=== PATIENT | male | born 1975 | race Caucasian/White ===

== ENCOUNTER 2020-01-14 23:02 | Inpatient (IN) ==
[2020-01-14] MEDS ORDERED: METOCLOPRAMIDE 10 MG/2 ML VIAL IV STA (23:31)
[2020-01-14] MEDS ORDERED: ONDANSETRON 4 MG/2 ML VIAL IV STA (23:31)
[2020-01-14] MEDS ORDERED: VANCOMYCIN INJ 1,000 MG in SODIUM CHLORIDE 0.9% 250 ML IV STA (23:31)
[2020-01-15 00:17] LABS: Basophils # 0.1 10*3/uL (0.0-0.2); Basophils % 0.9 % (0.0-0.8); Eosinophils # 0.4 10*3/uL (0.0-0.87); Eosinophils % 3.1 % (0.00-10.9); Hematocrit 33.4 VOL% (42.0-52.0); Hemoglobin 10.3 GM/DL (14.0-18.0); Immature Granulocytes % 1.3 %; Immature Granulocytes Absolute 0.15 #; Lymphocytes # 2.9 10*3/uL (1.4-4.0); Lymphocytes % 25.2 % (21.2-54.2); Mean Corpuscular HGB Conc 30.8 GM/DL (32-36); Mean Platelet Volume 9.4 FL (9.6-12.0); Monocytes % 7.1 % (1.7-12.7); Neutrophils % 62.4 % (38.7-73.9); Platelet Count 244 T/CUMM (130-400); Red Blood Count 3.48 MC/CUMM (3.8-5.5); Red Cell Distribution Width 13.6 % (9.3-17.3); White Blood Count 11.6 T/CUMM (4-12)
[2020-01-15 00:26] LABS: INR 0.9
[2020-01-15 00:52] LABS: Alanine Aminotransferase 21 U/L (16-61); Alkaline Phosphatase 103 U/L (45-117); Aspartate Amino Transferase 15 U/L (0-37); Bilirubin,Total < 0.39 MG/DL (0.2-1.0); Calcium 9.8 MG/DL (8.5-10.1); Total Protein 7.8 G/DL (6.4-8.3)
[2020-01-15 00:53] LABS: Albumin 3.3 G/DL (3.4-5.0); Blood Urea Nitrogen 13 MG/DL (7-18); CKMB % 5.7 %; Estimated Glom Filtration Rate 25 ML/MIN; Glucose 96 MG/DL (74-106); Osmolality,Calculated 267.2 MOS/KG (273-304)
[2020-01-15 00:54] LABS: Amylase 19 U/L (25-115); Troponin I < 0.015 NG/ML (0.00-0.045)
[2020-01-15] MEDS ORDERED: POTASSIUM BICARB EFFERVESCENT 25 MEQ TABLET PO ONE (01:08)
[2020-01-15 01:22] LABS: Sedimentation Rate-Westergren 111 MM/HR (0-15)
[2020-01-15] MEDS ORDERED: hydrALAZINE 20 MG/1 ML VIAL IV PRN (03:58)
[2020-01-15] MEDS ORDERED: DEXTROSE 50% 25 GM/50 ML VIAL IV PRN (03:58)
[2020-01-15] MEDS ORDERED: diphenhydrAMINE CAP 25 MG CAPSULE PO PRN ×2 (03:58→07:45)
[2020-01-15] MEDS ORDERED: ONDANSETRON 4 MG/2 ML VIAL IV PRN (03:58)
[2020-01-15] MEDS ORDERED: POTASSIUM CHLORIDE 20 MEQ TABLET PO PRN (03:58)
[2020-01-15] MEDS ORDERED: traZODone 50 MG TABLET PO PRN (03:58)
[2020-01-15] MEDS ORDERED: ACETAMINOPHEN 325 MG TABLET PO PRN (03:58)
[2020-01-15] MEDS ORDERED: GLUCAGON 1 MG VIAL IM PRN (03:58)
[2020-01-15] MEDS ORDERED: CALCIUM CARBONATE CHEW 500 MG TABLET PO PRN ×2 (03:58→06:14)
[2020-01-15] MEDS ORDERED: ALBUTEROL/IPRATROPIUM 3 ML NEB RESP TX PRN (03:58)
[2020-01-15] MEDS ORDERED: guaiFENesin/DM ER 600-30 MG TABLET PO PRN (03:58)
[2020-01-15] MEDS ORDERED: NICOTINE 21 MG/24 HR PATCH TRANSDERM PRN (03:58)
[2020-01-15] MEDS ORDERED: VANCOMYCIN INJ 1,000 MG in SODIUM CHLORIDE 0.9% 250 ML IV PRN ×2 (05:26→06:14)
[2020-01-15] MEDS: INSULIN REGULAR 100 UNIT/ML SUBCUT SCH ×4 (05:38→23:26)
[2020-01-15] MEDS ORDERED: VANCOMYCIN INJ 1,500 MG in SODIUM CHLORIDE 0.9% 500 ML IV ONE (06:00)
[2020-01-15 07:28] LABS: Apearance,Urine Slightly Hazy (Clear); Bilirubin,Urine Negative (Negative); Blood, Urine Moderate mg/dL (Negative); Glucose,Urine (UA) 50 mg/dL (Negative); Hyaline Casts,Urine 6 /LPF (0-3); Ketones,Urine Negative (Negative); Mucus,Urine Occasional /LPF (Occasional); Nitrite,Urine Negative (Negative); Protein,Urine 100 MG/DL; RBC,Urine 4 /HPF (0-4); Urine Color Amber (Yellow); Urine Specific Gravity 1.016 (1.001-1.035); Urine Urobilinogen < 2.0 EU/DL (0.2-1.0); WBC,Urine 16 /HPF (0-6)
[2020-01-15] MEDS ORDERED: CLINDAMYCIN INJ 600 MG in PREMIX 1 EACH IV SCH (07:30)
[2020-01-15] MEDS ORDERED: NF- (Ferric Citrate [Auryxia] 420 MG) PO PRN (07:45)
[2020-01-15] MEDS: carvediloL 6.25 MG TABLET PO SCH ×2 (08:38→17:46)
[2020-01-15] MEDS: ASPIRIN EC 81 MG TABLET PO SCH (08:44)
[2020-01-15] MEDS: LACTOBACILLUS ACIDOPHILUS/BULGARICUS CAPLET PO SCH (08:45)
[2020-01-15] MEDS: NF- (Ferric Citrate [Auryxia] 420 MG) PO SCH ×3 (08:45→17:47)
[2020-01-15] MEDS: CLINDAMYCIN INJ 300 MG in PREMIX 1 EACH IV SCH ×3 (09:25→20:17)
[2020-01-15] MEDS ORDERED: BUPIVACAINE MPF 0.25% 30 ML VIAL ONE (11:34)
[2020-01-15] MEDS ORDERED: LIDOCAINE 1% 20 ML VIAL ONE (11:34)
[2020-01-15 11:53] LABS: Albumin 2.9 G/DL (3.4-5.0); Bilirubin,Total 0.5 MG/DL (0.2-1.0); Calcium 9.1 MG/DL (8.5-10.1); Osmolality,Calculated 266.7 MOS/KG (273-304); Total Protein 7.1 G/DL (6.4-8.3)
[2020-01-15] MEDS ORDERED: SODIUM CHLORIDE 0.9% 250 ML IV SCH (12:00)
[2020-01-15] MEDS ORDERED: SODIUM CHLORIDE 0.9% 100 ML IV ONE (12:43)
[2020-01-15] MEDS ORDERED: fentaNYL 100 MCG/2 ML VIAL ONE (12:43)
[2020-01-15] MEDS ORDERED: MIDAZOLAM 2 MG/2 ML VIAL ONE (12:43)
[2020-01-15] MEDS ORDERED: propofoL 200 MG/20 ML VIAL IV ONE (12:43)
[2020-01-15] MEDS ORDERED: LIDOCAINE 2% 5 ML VIAL ONE (12:43)
[2020-01-15] MEDS: INSULIN GLARGINE 100 UNIT/ML SUBCUT SCH (20:17)
[2020-01-15] MEDS: AMITRIPTYLINE 10 MG TABLET PO SCH (20:17)
[2020-01-15] MEDS: MORPHINE 4 MG/1 ML VIAL IV PRN (23:26)
[2020-01-16] MEDS: CLINDAMYCIN INJ 300 MG in PREMIX 1 EACH IV SCH ×4 (01:18→20:19)
[2020-01-16] MEDS: MORPHINE 4 MG/1 ML VIAL IV PRN ×5 (02:57→23:53)
[2020-01-16] MEDS: INSULIN REGULAR 100 UNIT/ML SUBCUT SCH ×4 (06:02→23:56)
[2020-01-16] MEDS: ASPIRIN EC 81 MG TABLET PO SCH (08:46)
[2020-01-16] MEDS: LACTOBACILLUS ACIDOPHILUS/BULGARICUS CAPLET PO SCH (08:46)
[2020-01-16] MEDS: NF- (Ferric Citrate [Auryxia] 420 MG) PO SCH ×3 (08:46→17:43)
[2020-01-16] MEDS: carvediloL 6.25 MG TABLET PO SCH ×2 (08:46→17:30)
[2020-01-16] MEDS: HEPARIN 5,000 UNIT/1 ML VIAL SUBCUT SCH ×2 (14:30→23:56)
[2020-01-16] MEDS: AMITRIPTYLINE 10 MG TABLET PO SCH (20:13)
[2020-01-16] MEDS: INSULIN GLARGINE 100 UNIT/ML SUBCUT SCH (20:13)
[2020-01-17] MEDS: CLINDAMYCIN INJ 300 MG in PREMIX 1 EACH IV SCH ×2 (01:54→09:52)
[2020-01-17] MEDS: INSULIN REGULAR 100 UNIT/ML SUBCUT SCH (05:39)
[2020-01-17 08:26] VITALS: BP 128/47
[2020-01-17] MEDS: ASPIRIN EC 81 MG TABLET PO SCH (09:52)
[2020-01-17] MEDS: LACTOBACILLUS ACIDOPHILUS/BULGARICUS CAPLET PO SCH (09:52)
[2020-01-17] MEDS: NF- (Ferric Citrate [Auryxia] 420 MG) PO SCH (09:52)
[2020-01-17] MEDS: carvediloL 6.25 MG TABLET PO SCH (09:52)
[2020-01-17] MEDS: MORPHINE 4 MG/1 ML VIAL IV PRN (09:53)
== END 2020-01-17 12:33 | disposition home health service (06) | DRG 264 ==
LOC: N.ED 23:02 → N.EDINP 01-15 02:05 → N.3E 01-15 02:52
PROVIDERS: ADMIT Family Medicine; ATTEND Family Medicine

== ENCOUNTER 2020-03-26 06:06 | Inpatient (IN) ==
[2020-03-25 13:26] LABS: Basophils # 0.1 10*3/uL (0.0-0.2); Basophils % 0.3 % (0.0-0.8); Eosinophils # 0.1 10*3/uL (0.0-0.87); Eosinophils % 0.5 % (0.00-10.9); Hematocrit 31.2 VOL% (42.0-52.0); Hemoglobin 9.6 GM/DL (14.0-18.0); Immature Granulocytes % 1.6 %; Immature Granulocytes Absolute 0.28 #; Lymphocytes # 1.3 10*3/uL (1.4-4.0); Lymphocytes % 7.1 % (21.2-54.2); Mean Corpuscular HGB Conc 30.8 GM/DL (32-36); Mean Platelet Volume 8.9 FL (9.6-12.0); Monocytes % 3.6 % (1.7-12.7); Neutrophils % 86.9 % (38.7-73.9); Platelet Count 229 T/CUMM (130-400); Red Blood Count 3.25 MC/CUMM (3.8-5.5); Red Cell Distribution Width 14.5 % (9.3-17.3); White Blood Count 17.8 T/CUMM (4-12)
[2020-03-25 13:47] LABS: Calcium 8.9 MG/DL (8.5-10.1); Osmolality,Calculated 264.4 MOS/KG (273-304)
[2020-03-26 00:03] LABS: Albumin 2.5 G/DL (3.4-5.0); Bilirubin,Total 0.4 MG/DL (0.2-1.0); Calcium 9.1 MG/DL (8.5-10.1); Osmolality,Calculated 264.2 MOS/KG (273-304); Total Protein 7.8 G/DL (6.4-8.3)
[~2020-03-26 06:06] MED LIST: ceFAZolin 1,000 MG in SYRINGE 1 EACH IV ONE
[2020-03-26] MEDS ORDERED: FAMOTIDINE 20 MG TABLET PO ONE (06:54)
[2020-03-26] MEDS ORDERED: BUPIVACAINE MPF 0.25% 30 ML VIAL ONE (06:56)
[2020-03-26] MEDS ORDERED: LIDOCAINE 1% 20 ML VIAL ONE (06:56)
[2020-03-26] MEDS ORDERED: FAMOTIDINE 20 MG TABLET ONE (07:00)
[2020-03-26] MEDS ORDERED: VANCOMYCIN 1,000 MG VIAL ONE (07:00)
[2020-03-26] MEDS ORDERED: SODIUM CHLORIDE 0.9% 250 ML IV SCH (07:00)
[2020-03-26 08:04] LABS: Albumin 2.2 G/DL (3.4-5.0); Bilirubin,Total 0.4 MG/DL (0.2-1.0); Calcium 8.7 MG/DL (8.5-10.1); Osmolality,Calculated 268.4 MOS/KG (273-304); Total Protein 7.1 G/DL (6.4-8.3)
[2020-03-26] MEDS ORDERED: ACETAMINOPHEN 325 MG TABLET PO PRN (09:10)
[2020-03-26] MEDS ORDERED: DEXTROSE 10% 250 ML BAG IV PRN (09:10)
[2020-03-26] MEDS ORDERED: GLUCAGON 1 MG VIAL IM PRN (09:10)
[2020-03-26] MEDS ORDERED: diphenhydrAMINE CAP 25 MG CAPSULE PO PRN (10:20)
[2020-03-26] MEDS ORDERED: CALCIUM CARBONATE CHEW 500 MG TABLET PO PRN (10:20)
[2020-03-26] MEDS ORDERED: VANCOMYCIN INJ 1,000 MG in SODIUM CHLORIDE 0.9% 250 ML IV PRN (11:34)
[2020-03-26] MEDS ORDERED: VANCOMYCIN INJ 2,500 MG in SODIUM CHLORIDE 0.9% 500 ML IV ONE (12:00)
[2020-03-26] MEDS: INSULIN REGULAR 100 UNIT/ML SUBCUT SCH ×3 (12:15→21:59)
[2020-03-26] MEDS ORDERED: LIDOCAINE/PRILOCAINE CREAM 5 GM TUBE TOP ONE (14:30)
[2020-03-26] MEDS ORDERED: POTASSIUM CHLORIDE 10 MEQ TABLET PO PRN (18:31)
[2020-03-26] MEDS: carvediloL 6.25 MG TABLET PO SCH (21:58)
[2020-03-26] MEDS: DOCUSATE SODIUM 100 MG CAPSULE PO SCH (21:58)
[2020-03-26] MEDS: AMITRIPTYLINE 10 MG TABLET PO SCH (21:58)
[2020-03-27 06:14] LABS: Basophils % 0.3 % (0.0-0.8); Eosinophils # 0.1 10*3/uL (0.0-0.87); Eosinophils % 0.3 % (0.00-10.9); Hematocrit 27.7 VOL% (42.0-52.0); Hemoglobin 8.5 GM/DL (14.0-18.0); Immature Granulocytes % 1.5 %; Immature Granulocytes Absolute 0.22 #; Lymphocytes # 1.8 10*3/uL (1.4-4.0); Mean Corpuscular HGB Conc 30.7 GM/DL (32-36); Mean Corpuscular Volume 93.9 FL (87-102); Mean Platelet Volume 9.5 FL (9.6-12.0); Monocytes % 5.2 % (1.7-12.7); Neutrophils % 80.7 % (38.7-73.9); Platelet Count 217 T/CUMM (130-400); Red Blood Count 2.95 MC/CUMM (3.8-5.5); Red Cell Distribution Width 14.6 % (9.3-17.3); White Blood Count 14.9 T/CUMM (4-12)
[2020-03-27 06:47] LABS: Alanine Aminotransferase < 9 U/L (16-61); Albumin 2.1 G/DL (3.4-5.0); Alkaline Phosphatase 170 U/L (45-117); Aspartate Amino Transferase 7 U/L (0-37); Bilirubin,Total < 0.39 MG/DL (0.2-1.0); Blood Urea Nitrogen 36 MG/DL (7-18); Calcium 8.4 MG/DL (8.5-10.1); Estimated Glom Filtration Rate 13 ML/MIN; Glucose 161 MG/DL (74-106); Osmolality,Calculated 270.8 MOS/KG (273-304)
[2020-03-27] MEDS ORDERED: ceFAZolin 1,000 MG in SYRINGE 1 EACH IV ONE (07:30)
[2020-03-27] MEDS: INSULIN REGULAR 100 UNIT/ML SUBCUT SCH ×4 (09:29→22:26)
[2020-03-27] MEDS ORDERED: POTASSIUM CHLORIDE 20 MEQ TABLET PO ONE (10:29)
[2020-03-27] MEDS ORDERED: POTASSIUM CHLORIDE INJ 40 MEQ in SODIUM CHLORIDE 0.9% 500 ML IV ONE (11:00)
[2020-03-27] MEDS: carvediloL 6.25 MG TABLET PO SCH ×2 (15:48→22:24)
[2020-03-27] MEDS: metOLazone 5 MG TABLET PO SCH (18:00)
[2020-03-27] MEDS: PANTOPRAZOLE 40 MG TABLET PO SCH (18:00)
[2020-03-27] MEDS: ASPIRIN EC 81 MG TABLET PO SCH (18:00)
[2020-03-27] MEDS ORDERED: BUPIVACAINE MPF 0.25% 30 ML VIAL ONE (18:17)
[2020-03-27] MEDS ORDERED: LIDOCAINE 1% 20 ML VIAL ONE (18:17)
[2020-03-27] MEDS ORDERED: MIDAZOLAM 2 MG/2 ML VIAL ONE (20:31)
[2020-03-27] MEDS ORDERED: propofoL 200 MG/20 ML VIAL IV ONE (20:31)
[2020-03-27] MEDS ORDERED: fentaNYL 100 MCG/2 ML VIAL ONE (20:32)
[2020-03-27] MEDS: AMITRIPTYLINE 10 MG TABLET PO SCH (22:25)
[2020-03-27] MEDS: DOCUSATE SODIUM 100 MG CAPSULE PO SCH (22:25)
[2020-03-28] MEDS: INSULIN REGULAR 100 UNIT/ML SUBCUT SCH ×4 (09:48→21:21)
[2020-03-28] MEDS: metOLazone 5 MG TABLET PO SCH (09:49)
[2020-03-28] MEDS: PANTOPRAZOLE 40 MG TABLET PO SCH (09:49)
[2020-03-28] MEDS: carvediloL 6.25 MG TABLET PO SCH ×2 (09:49→21:15)
[2020-03-28] MEDS: ASPIRIN EC 81 MG TABLET PO SCH (09:49)
[2020-03-28 09:52] LABS: Basophils # 0.1 10*3/uL (0.0-0.2); Basophils % 0.4 % (0.0-0.8); Eosinophils # 0.3 10*3/uL (0.0-0.87); Eosinophils % 1.8 % (0.00-10.9); Hematocrit 28.5 VOL% (42.0-52.0); Hemoglobin 8.7 GM/DL (14.0-18.0); Immature Granulocytes % 2.7 %; Immature Granulocytes Absolute 0.38 #; Lymphocytes # 1.6 10*3/uL (1.4-4.0); Lymphocytes % 11.7 % (21.2-54.2); Mean Corpuscular HGB Conc 30.5 GM/DL (32-36); Mean Platelet Volume 9.1 FL (9.6-12.0); Neutrophils % 79.4 % (38.7-73.9); Platelet Count 227 T/CUMM (130-400); Red Blood Count 2.97 MC/CUMM (3.8-5.5); Red Cell Distribution Width 14.8 % (9.3-17.3); White Blood Count 13.9 T/CUMM (4-12)
[2020-03-28] MEDS: DOCUSATE SODIUM 100 MG CAPSULE PO SCH (21:14)
[2020-03-28] MEDS: AMITRIPTYLINE 10 MG TABLET PO SCH (21:15)
[2020-03-29 08:09] LABS: Basophils # 0.1 10*3/uL (0.0-0.2); Basophils % 0.5 % (0.0-0.8); Eosinophils # 0.3 10*3/uL (0.0-0.87); Eosinophils % 2.2 % (0.00-10.9); Hematocrit 27.5 VOL% (42.0-52.0); Hemoglobin 8.2 GM/DL (14.0-18.0); Immature Granulocytes Absolute 0.63 #; Lymphocytes # 1.9 10*3/uL (1.4-4.0); Lymphocytes % 14.7 % (21.2-54.2); Mean Corpuscular HGB Conc 29.8 GM/DL (32-36); Mean Corpuscular Volume 95.2 FL (87-102); Mean Platelet Volume 9.1 FL (9.6-12.0); Neutrophils % 72.6 % (38.7-73.9); Platelet Count 250 T/CUMM (130-400); Red Blood Count 2.89 MC/CUMM (3.8-5.5); Red Cell Distribution Width 14.7 % (9.3-17.3); White Blood Count 12.7 T/CUMM (4-12)
[2020-03-29] MEDS: ASPIRIN EC 81 MG TABLET PO SCH (08:25)
[2020-03-29] MEDS: INSULIN REGULAR 100 UNIT/ML SUBCUT SCH ×4 (08:25→21:52)
[2020-03-29] MEDS: PANTOPRAZOLE 40 MG TABLET PO SCH (08:26)
[2020-03-29 08:35] LABS: Anisocytosis 2+; Band Neutrophils 12 % (0-10); Eosinophils 3 % (0-10); Lymphocytes 12 % (20-55); Macrocytosis 2+; Metamyelocytes 1 %; Segmented Neutrophils 66 % (50-85); Total Cells Counted 100
[2020-03-29 08:39] LABS: Calcium 8.6 MG/DL (8.5-10.1); Osmolality,Calculated 279.9 MOS/KG (273-304)
[2020-03-29] MEDS ORDERED: CLINDAMYCIN INJ 900 MG in PREMIX 1 EACH IV ONE (10:40)
[2020-03-29 10:49] LABS: Hepatitis B Core IgM Quant 1.05 Index; Hepatitis B Surface Ag Quant < 0.10 Index; Hepatitis B Surface Ag Result Negative (Negative); Hepatitis C Virus Ab Quant < 0.02 Index; Hepatitis C Virus Ab Result Negative (Negative)
[2020-03-29] MEDS ORDERED: POTASSIUM CHLORIDE 20 MEQ TABLET PO ONE (12:44)
[2020-03-29] MEDS: HYDROmorphone 2 MG/1 ML VIAL IV PRN ×4 (13:04→21:02)
[2020-03-29] MEDS: carvediloL 6.25 MG TABLET PO SCH ×2 (13:05→21:51)
[2020-03-29] MEDS: metOLazone 5 MG TABLET PO SCH (13:05)
[2020-03-29] MEDS ORDERED: VANCOMYCIN INJ 1,000 MG in SODIUM CHLORIDE 0.9% 250 ML IV ONE (17:00)
[2020-03-29] MEDS ORDERED: SUGAMMADEX 200 MG/2 ML VIAL IV ONE (17:39)
[2020-03-29] MEDS ORDERED: SODIUM CHLORIDE 0.9% 250 ML IV ONE (18:07)
[2020-03-29] MEDS ORDERED: ROCURONIUM 100 MG/10 ML VIAL IV ONE (18:07)
[2020-03-29] MEDS ORDERED: ONDANSETRON 4 MG/2 ML VIAL ONE (18:07)
[2020-03-29] MEDS ORDERED: MIDAZOLAM 2 MG/2 ML VIAL ONE (18:07)
[2020-03-29] MEDS ORDERED: fentaNYL 100 MCG/2 ML VIAL ONE (18:07)
[2020-03-29] MEDS ORDERED: SEVOFLURANE 1 UNIT/15 MINUTE INH ONE (18:07)
[2020-03-29] MEDS ORDERED: propofoL 200 MG/20 ML VIAL IV ONE (18:07)
[2020-03-29] MEDS ORDERED: LIDOCAINE 2% 5 ML VIAL ONE (18:07)
[2020-03-29] MEDS ORDERED: ONDANSETRON 4 MG/2 ML VIAL IV PRN (18:13)
[2020-03-29] MEDS: metroNIDAZOLE INJ 500 MG in PREMIX 1 EACH IV SCH (19:39)
[2020-03-29] MEDS ORDERED: GENTAMICIN INJ 160 MG in SODIUM CHLORIDE 0.9% 100 ML IV PRN (21:14)
[2020-03-29] MEDS: AMITRIPTYLINE 10 MG TABLET PO SCH (21:51)
[2020-03-29] MEDS: DOCUSATE SODIUM 100 MG CAPSULE PO SCH (21:51)
[2020-03-29] MEDS ORDERED: GENTAMICIN INJ 160 MG in SODIUM CHLORIDE 0.9% 100 ML IV ONE (23:00)
[2020-03-30] MEDS: INSULIN REGULAR 100 UNIT/ML SUBCUT SCH ×4 (08:30→20:48)
[2020-03-30] MEDS: metOLazone 5 MG TABLET PO SCH (09:28)
[2020-03-30] MEDS: carvediloL 6.25 MG TABLET PO SCH ×2 (09:29→20:46)
[2020-03-30] MEDS: ASPIRIN EC 81 MG TABLET PO SCH (09:29)
[2020-03-30] MEDS: PANTOPRAZOLE 40 MG TABLET PO SCH (09:29)
[2020-03-30] MEDS ORDERED: POTASSIUM CHLORIDE 20 MEQ TABLET PO SCH (11:00)
[2020-03-30] MEDS: HYDROmorphone 2 MG/1 ML VIAL IV PRN ×3 (11:27→21:19)
[2020-03-30] MEDS: metroNIDAZOLE INJ 500 MG in PREMIX 1 EACH IV SCH ×3 (11:27→22:47)
[2020-03-30] MEDS: POTASSIUM CHLORIDE 20 MEQ TABLET PO SCH ×2 (11:28→18:55)
[2020-03-30] MEDS ORDERED: NON-FORMULARY MEDICATION (Ferric Citrate [Auryxia] 420 MG) PO SCH (17:00)
[2020-03-30] MEDS: AMITRIPTYLINE 10 MG TABLET PO SCH (20:47)
[2020-03-30] MEDS: DOCUSATE SODIUM 100 MG CAPSULE PO SCH (20:47)
[2020-03-30] MEDS: INSULIN GLARGINE 100 UNIT/ML SUBCUT SCH (20:56)
[2020-03-31] MEDS: HYDROmorphone 2 MG/1 ML VIAL IV PRN ×5 (03:42→20:56)
[2020-03-31] MEDS: INSULIN REGULAR 100 UNIT/ML SUBCUT SCH ×4 (08:34→20:57)
[2020-03-31] MEDS: metOLazone 5 MG TABLET PO SCH (09:10)
[2020-03-31] MEDS: PANTOPRAZOLE 40 MG TABLET PO SCH (09:10)
[2020-03-31] MEDS: ASPIRIN EC 81 MG TABLET PO SCH (09:10)
[2020-03-31] MEDS: carvediloL 6.25 MG TABLET PO SCH ×2 (09:10→20:55)
[2020-03-31] MEDS ORDERED: GENTAMICIN INJ 200 MG in SODIUM CHLORIDE 0.9% 100 ML IV PRN (09:30)
[2020-03-31] MEDS: metroNIDAZOLE INJ 500 MG in PREMIX 1 EACH IV SCH (11:47)
[2020-03-31] MEDS: SODIUM HYPOCHLORITE 0.25% IRRIG 473 ML BOTTLE TOP SCH (13:05)
[2020-03-31] MEDS ORDERED: VANCOMYCIN INJ 1,000 MG in SODIUM CHLORIDE 0.9% 250 ML IV ONE (17:00)
[2020-03-31] MEDS ORDERED: GENTAMICIN INJ 200 MG in SODIUM CHLORIDE 0.9% 100 ML IV ONE (18:00)
[2020-03-31] MEDS: DOCUSATE SODIUM 100 MG CAPSULE PO SCH (20:55)
[2020-03-31] MEDS: AMITRIPTYLINE 10 MG TABLET PO SCH (20:56)
[2020-03-31] MEDS: INSULIN GLARGINE 100 UNIT/ML SUBCUT SCH (20:57)
[2020-04-01] MEDS: metroNIDAZOLE INJ 500 MG in PREMIX 1 EACH IV SCH ×2 (00:05→11:55)
[2020-04-01] MEDS: HYDROmorphone 2 MG/1 ML VIAL IV PRN ×6 (01:19→20:59)
[2020-04-01 06:47] LABS: Basophils # 0.1 10*3/uL (0.0-0.2); Basophils % 0.7 % (0.0-0.8); Eosinophils # 0.6 10*3/uL (0.0-0.87); Eosinophils % 4.7 % (0.00-10.9); Hematocrit 29.2 VOL% (42.0-52.0); Hemoglobin 8.7 GM/DL (14.0-18.0); Immature Granulocytes % 9.2 %; Immature Granulocytes Absolute 1.19 #; Lymphocytes # 2.4 10*3/uL (1.4-4.0); Lymphocytes % 18.7 % (21.2-54.2); Mean Corpuscular HGB Conc 29.8 GM/DL (32-36); Mean Corpuscular Volume 94.5 FL (87-102); Mean Platelet Volume 9.2 FL (9.6-12.0); Monocytes % 4.5 % (1.7-12.7); Neutrophils % 62.2 % (38.7-73.9); Platelet Count 286 T/CUMM (130-400); Red Blood Count 3.09 MC/CUMM (3.8-5.5); Red Cell Distribution Width 14.7 % (9.3-17.3); White Blood Count 12.9 T/CUMM (4-12)
[2020-04-01 07:18] LABS: Band Neutrophils 1 % (0-10); Eosinophils 9 % (0-10); Hypochromasia 1+; Lymphocytes 18 % (20-55); Metamyelocytes 1 %; Microcytosis Slight; Myelocytes 1 %; Segmented Neutrophils 65 % (50-85); Total Cells Counted 100
[2020-04-01 07:19] LABS: Alanine Aminotransferase < 6 U/L (16-61); Alkaline Phosphatase 138 U/L (45-117); Aspartate Amino Transferase 12 U/L (0-37); Blood Urea Nitrogen 34 MG/DL (7-18); Calcium 8.4 MG/DL (8.5-10.1); Estimated Glom Filtration Rate 16 ML/MIN; Glucose 202 MG/DL (74-106); Osmolality,Calculated 275.7 MOS/KG (273-304); Platelet Estimate Normal; Tear Drop Cells Slight; Total Protein 6.7 G/DL (6.4-8.3)
[2020-04-01] MEDS: SODIUM HYPOCHLORITE 0.25% IRRIG 473 ML BOTTLE TOP SCH (08:00)
[2020-04-01] MEDS: carvediloL 6.25 MG TABLET PO SCH ×2 (09:23→20:57)
[2020-04-01] MEDS: INSULIN REGULAR 100 UNIT/ML SUBCUT SCH ×4 (09:23→20:58)
[2020-04-01] MEDS: ASPIRIN EC 81 MG TABLET PO SCH (09:23)
[2020-04-01] MEDS: metOLazone 5 MG TABLET PO SCH (09:23)
[2020-04-01] MEDS: PANTOPRAZOLE 40 MG TABLET PO SCH (09:24)
[2020-04-01] MEDS: ONDANSETRON 4 MG/2 ML VIAL IV PRN (18:01)
[2020-04-01] MEDS: AMITRIPTYLINE 10 MG TABLET PO SCH (20:57)
[2020-04-01] MEDS: DOCUSATE SODIUM 100 MG CAPSULE PO SCH (20:57)
[2020-04-01] MEDS: INSULIN GLARGINE 100 UNIT/ML SUBCUT SCH (20:58)
[2020-04-02] MEDS: HYDROmorphone 2 MG/1 ML VIAL IV PRN ×7 (00:10→23:38)
[2020-04-02] MEDS: metroNIDAZOLE INJ 500 MG in PREMIX 1 EACH IV SCH ×3 (00:10→23:38)
[2020-04-02 08:01] LABS: Basophils # 0.1 10*3/uL (0.0-0.2); Basophils % 0.7 % (0.0-0.8); Eosinophils # 0.6 10*3/uL (0.0-0.87); Eosinophils % 4.7 % (0.00-10.9); Hematocrit 29.9 VOL% (42.0-52.0); Hemoglobin 8.9 GM/DL (14.0-18.0); Immature Granulocytes % 10.8 %; Immature Granulocytes Absolute 1.32 #; Lymphocytes # 2.2 10*3/uL (1.4-4.0); Mean Corpuscular HGB Conc 29.8 GM/DL (32-36); Mean Corpuscular Volume 96.1 FL (87-102); Monocytes % 4.7 % (1.7-12.7); Neutrophils % 61.1 % (38.7-73.9); Platelet Count 282 T/CUMM (130-400); Red Blood Count 3.11 MC/CUMM (3.8-5.5); Red Cell Distribution Width 14.6 % (9.3-17.3); White Blood Count 12.3 T/CUMM (4-12)
[2020-04-02 08:29] LABS: Band Neutrophils 1 % (0-10); Eosinophils 3 % (0-10); Hypochromasia 2+; Lymphocytes 17 % (20-55); Metamyelocytes 2 %; Platelet Estimate Normal; Segmented Neutrophils 74 % (50-85); Total Cells Counted 100
[2020-04-02 08:49] LABS: Calcium 8.4 MG/DL (8.5-10.1); Osmolality,Calculated 278.7 MOS/KG (273-304)
[2020-04-02] MEDS: INSULIN REGULAR 100 UNIT/ML SUBCUT SCH ×4 (09:00→20:49)
[2020-04-02] MEDS: carvediloL 6.25 MG TABLET PO SCH ×2 (09:02→20:49)
[2020-04-02] MEDS: metOLazone 5 MG TABLET PO SCH (09:02)
[2020-04-02] MEDS: ASPIRIN EC 81 MG TABLET PO SCH (09:02)
[2020-04-02] MEDS: PANTOPRAZOLE 40 MG TABLET PO SCH (09:02)
[2020-04-02] MEDS: SODIUM HYPOCHLORITE 0.25% IRRIG 473 ML BOTTLE TOP SCH (09:09)
[2020-04-02] MEDS: ONDANSETRON 4 MG/2 ML VIAL IV PRN (14:55)
[2020-04-02] MEDS ORDERED: VANCOMYCIN INJ 1,000 MG in SODIUM CHLORIDE 0.9% 250 ML IV ONE (17:00)
[2020-04-02] MEDS ORDERED: GENTAMICIN INJ 200 MG in SODIUM CHLORIDE 0.9% 100 ML IV ONE (18:00)
[2020-04-02] MEDS: DOCUSATE SODIUM 100 MG CAPSULE PO SCH (20:49)
[2020-04-02] MEDS: AMITRIPTYLINE 10 MG TABLET PO SCH (20:49)
[2020-04-02] MEDS: INSULIN GLARGINE 100 UNIT/ML SUBCUT SCH (20:50)
[2020-04-03] MEDS: HYDROmorphone 2 MG/1 ML VIAL IV PRN ×6 (02:58→19:05)
[2020-04-03] MEDS: ONDANSETRON 4 MG/2 ML VIAL IV PRN (08:42)
[2020-04-03] MEDS: metOLazone 5 MG TABLET PO SCH (09:21)
[2020-04-03] MEDS: carvediloL 6.25 MG TABLET PO SCH ×2 (09:21→20:49)
[2020-04-03] MEDS: INSULIN REGULAR 100 UNIT/ML SUBCUT SCH ×4 (09:21→20:50)
[2020-04-03] MEDS: ASPIRIN EC 81 MG TABLET PO SCH (09:21)
[2020-04-03] MEDS: PANTOPRAZOLE 40 MG TABLET PO SCH (09:22)
[2020-04-03] MEDS: SODIUM HYPOCHLORITE 0.25% IRRIG 473 ML BOTTLE TOP SCH (09:22)
[2020-04-03] MEDS: metroNIDAZOLE INJ 500 MG in PREMIX 1 EACH IV SCH (11:39)
[2020-04-03] MEDS: DOCUSATE SODIUM 100 MG CAPSULE PO SCH (20:49)
[2020-04-03] MEDS: AMITRIPTYLINE 10 MG TABLET PO SCH (20:49)
[2020-04-03] MEDS: INSULIN GLARGINE 100 UNIT/ML SUBCUT SCH (20:49)
[2020-04-04] MEDS: HYDROmorphone 2 MG/1 ML VIAL IV PRN ×7 (01:22→23:38)
[2020-04-04] MEDS: metroNIDAZOLE INJ 500 MG in PREMIX 1 EACH IV SCH ×3 (01:27→20:27)
[2020-04-04] MEDS: carvediloL 6.25 MG TABLET PO SCH ×2 (08:45→20:42)
[2020-04-04] MEDS: PANTOPRAZOLE 40 MG TABLET PO SCH (08:45)
[2020-04-04] MEDS: metOLazone 5 MG TABLET PO SCH (08:45)
[2020-04-04] MEDS: ASPIRIN EC 81 MG TABLET PO SCH (08:45)
[2020-04-04] MEDS: SODIUM HYPOCHLORITE 0.25% IRRIG 473 ML BOTTLE TOP SCH (08:47)
[2020-04-04] MEDS: INSULIN REGULAR 100 UNIT/ML SUBCUT SCH ×4 (09:59→20:43)
[2020-04-04] MEDS: AMITRIPTYLINE 10 MG TABLET PO SCH (20:42)
[2020-04-04] MEDS: INSULIN GLARGINE 100 UNIT/ML SUBCUT SCH ×2 (20:43→20:49)
[2020-04-04] MEDS: DOCUSATE SODIUM 100 MG CAPSULE PO SCH (20:43)
[2020-04-05] MEDS: HYDROmorphone 2 MG/1 ML VIAL IV PRN ×8 (03:58→21:11)
[2020-04-05 05:54] LABS: Basophils # 0.1 10*3/uL (0.0-0.2); Eosinophils # 0.6 10*3/uL (0.0-0.87); Hematocrit 28.3 VOL% (42.0-52.0); Hemoglobin 8.5 GM/DL (14.0-18.0); Immature Granulocytes % 4.9 %; Immature Granulocytes Absolute 0.45 #; Lymphocytes # 2.2 10*3/uL (1.4-4.0); Lymphocytes % 23.9 % (21.2-54.2); Mean Platelet Volume 9.1 FL (9.6-12.0); Monocytes % 6.1 % (1.7-12.7); Neutrophils % 58.1 % (38.7-73.9); Platelet Count 288 T/CUMM (130-400); Red Blood Count 3.01 MC/CUMM (3.8-5.5); Red Cell Distribution Width 14.3 % (9.3-17.3); White Blood Count 9.2 T/CUMM (4-12)
[2020-04-05 06:11] LABS: Gentamicin,Random 1.4 UG/ML; Vancomycin,Random 21.3 UG/ML
[2020-04-05 06:16] LABS: Calcium 8.5 MG/DL (8.5-10.1); Osmolality,Calculated 280.4 MOS/KG (273-304)
[2020-04-05] MEDS ORDERED: SUGAMMADEX 200 MG/2 ML VIAL IV ONE (07:34)
[2020-04-05] MEDS ORDERED: SODIUM CHLORIDE 0.9% 250 ML IV SCH (08:00)
[2020-04-05] MEDS: INSULIN REGULAR 100 UNIT/ML SUBCUT SCH ×4 (08:03→21:13)
[2020-04-05] MEDS: SODIUM HYPOCHLORITE 0.25% IRRIG 473 ML BOTTLE TOP SCH (09:00)
[2020-04-05] MEDS ORDERED: ONDANSETRON 4 MG/2 ML VIAL IV PRN (09:48)
[2020-04-05] MEDS ORDERED: LIDOCAINE 2% 5 ML VIAL ONE (09:55)
[2020-04-05] MEDS ORDERED: SEVOFLURANE 1 UNIT/15 MINUTE INH ONE (09:55)
[2020-04-05] MEDS ORDERED: propofoL 200 MG/20 ML VIAL IV ONE (09:55)
[2020-04-05] MEDS ORDERED: MIDAZOLAM 2 MG/2 ML VIAL ONE (09:55)
[2020-04-05] MEDS ORDERED: NEOSTIGMINE 10 MG/10 ML VIAL ONE (09:56)
[2020-04-05] MEDS ORDERED: GLYCOPYRROLATE 0.4 MG/2 ML VIAL ONE (09:56)
[2020-04-05] MEDS ORDERED: ROCURONIUM 100 MG/10 ML VIAL IV ONE (09:56)
[2020-04-05] MEDS ORDERED: fentaNYL 100 MCG/2 ML VIAL ONE ×2 (09:56→09:57)
[2020-04-05] MEDS ORDERED: PHENYLEPHRINE 1 MG/10 ML SYRINGE IV ONE (09:56)
[2020-04-05] MEDS ORDERED: SODIUM CHLORIDE 0.9% 250 ML IV ONE (09:56)
[2020-04-05] MEDS ORDERED: ONDANSETRON 4 MG/2 ML VIAL ONE (09:56)
[2020-04-05] MEDS: metOLazone 5 MG TABLET PO SCH (11:02)
[2020-04-05] MEDS: metroNIDAZOLE INJ 500 MG in PREMIX 1 EACH IV SCH ×2 (11:03→21:15)
[2020-04-05] MEDS: ASPIRIN EC 81 MG TABLET PO SCH (11:03)
[2020-04-05] MEDS: carvediloL 6.25 MG TABLET PO SCH ×2 (11:03→21:15)
[2020-04-05] MEDS: PANTOPRAZOLE 40 MG TABLET PO SCH (11:03)
[2020-04-05] MEDS ORDERED: KETOROLAC 30 MG/1 ML VIAL IV ONE (15:07)
[2020-04-05] MEDS ORDERED: KETOROLAC 15 MG/1 ML VIAL IV PRN (15:07)
[2020-04-05] MEDS ORDERED: HYDROmorphone 2 MG/1 ML VIAL IV ONE (15:10)
[2020-04-05] MEDS: GABAPENTIN 100 MG CAPSULE PO SCH ×2 (15:56→21:15)
[2020-04-05] MEDS ORDERED: GENTAMICIN INJ 200 MG in SODIUM CHLORIDE 0.9% 100 ML IV ONE (17:00)
[2020-04-05] MEDS ORDERED: VANCOMYCIN INJ 1,000 MG in SODIUM CHLORIDE 0.9% 250 ML IV ONE (17:30)
[2020-04-05] MEDS: INSULIN GLARGINE 100 UNIT/ML SUBCUT SCH (21:14)
[2020-04-05] MEDS: DOCUSATE SODIUM 100 MG CAPSULE PO SCH (21:15)
[2020-04-05] MEDS: AMITRIPTYLINE 10 MG TABLET PO SCH (21:15)
[2020-04-06 07:06] LABS: Basophils # 0.1 10*3/uL (0.0-0.2); Basophils % 0.9 % (0.0-0.8); Eosinophils # 0.4 10*3/uL (0.0-0.87); Eosinophils % 4.5 % (0.00-10.9); Hematocrit 24.2 VOL% (42.0-52.0); Hemoglobin 7.1 GM/DL (14.0-18.0); Immature Granulocytes Absolute 0.32 #; Lymphocytes # 2.1 10*3/uL (1.4-4.0); Lymphocytes % 25.7 % (21.2-54.2); Mean Corpuscular HGB Conc 29.3 GM/DL (32-36); Mean Corpuscular Volume 97.6 FL (87-102); Mean Platelet Volume 9.4 FL (9.6-12.0); Monocytes % 6.5 % (1.7-12.7); Neutrophils % 58.4 % (38.7-73.9); Platelet Count 274 T/CUMM (130-400); Red Blood Count 2.48 MC/CUMM (3.8-5.5); Red Cell Distribution Width 14.5 % (9.3-17.3)
[2020-04-06 07:23] LABS: Calcium 7.7 MG/DL (8.5-10.1); Osmolality,Calculated 283.1 MOS/KG (273-304)
[2020-04-06] MEDS ORDERED: EPOETIN ALFA-EPBX 10,000 UNIT/ML VIAL IV PRN (08:40)
[2020-04-06] MEDS: HYDROmorphone 2 MG/1 ML VIAL IV PRN ×5 (08:43→22:41)
[2020-04-06] MEDS: carvediloL 6.25 MG TABLET PO SCH ×2 (08:44→20:58)
[2020-04-06] MEDS: PANTOPRAZOLE 40 MG TABLET PO SCH (08:44)
[2020-04-06] MEDS: GABAPENTIN 100 MG CAPSULE PO SCH ×3 (08:44→20:58)
[2020-04-06] MEDS: metOLazone 5 MG TABLET PO SCH (08:44)
[2020-04-06] MEDS: INSULIN REGULAR 100 UNIT/ML SUBCUT SCH ×4 (08:44→20:57)
[2020-04-06] MEDS: SODIUM HYPOCHLORITE 0.25% IRRIG 473 ML BOTTLE TOP SCH (08:45)
[2020-04-06] MEDS: ASPIRIN EC 81 MG TABLET PO SCH (08:45)
[2020-04-06] MEDS: INSULIN GLARGINE 100 UNIT/ML SUBCUT SCH (20:56)
[2020-04-06] MEDS: AMITRIPTYLINE 10 MG TABLET PO SCH (20:58)
[2020-04-06] MEDS: DOCUSATE SODIUM 100 MG CAPSULE PO SCH (21:02)
[2020-04-07] MEDS: HYDROmorphone 2 MG/1 ML VIAL IV PRN ×5 (00:50→10:13)
[2020-04-07] MEDS: ONDANSETRON 4 MG/2 ML VIAL IV PRN (07:46)
[2020-04-07 09:08] VITALS: BP 115/53
[2020-04-07] MEDS: INSULIN REGULAR 100 UNIT/ML SUBCUT SCH ×2 (09:28→12:29)
[2020-04-07] MEDS: metOLazone 5 MG TABLET PO SCH (09:29)
[2020-04-07] MEDS: ASPIRIN EC 81 MG TABLET PO SCH (09:30)
[2020-04-07] MEDS: SODIUM HYPOCHLORITE 0.25% IRRIG 473 ML BOTTLE TOP SCH (09:30)
[2020-04-07] MEDS: carvediloL 6.25 MG TABLET PO SCH (09:30)
[2020-04-07] MEDS: PANTOPRAZOLE 40 MG TABLET PO SCH (09:30)
[2020-04-07] MEDS: GABAPENTIN 100 MG CAPSULE PO SCH (09:30)
== END 2020-04-07 12:30 | disposition home health service (06) | DRG 239 ==
LOC: N.SDSINP 06:06 → N.OR 06:06 → N.SDSINP 06:08 → N.3E 10:35
PROVIDERS: ADMIT Student in an Organized Health Care Education/Training Program; ATTEND Surgery

== ENCOUNTER 2020-04-19 11:45 | Inpatient (IN) ==
[2020-04-19] MEDS ORDERED: NALOXONE 0.4 MG/ML VIAL IV STA (12:09)
[2020-04-19 12:16] LABS: Basophils # 0.1 10*3/uL (0.0-0.2); Basophils % 0.6 % (0.0-0.8); Eosinophils # 0.2 10*3/uL (0.0-0.87); Eosinophils % 1.7 % (0.00-10.9); Hematocrit 23.6 VOL% (42.0-52.0); Hemoglobin 6.9 GM/DL (14.0-18.0); Immature Granulocytes % 4.1 %; Immature Granulocytes Absolute 0.39 #; Lymphocytes # 1.9 10*3/uL (1.4-4.0); Lymphocytes % 19.8 % (21.2-54.2); Mean Corpuscular HGB Conc 29.2 GM/DL (32-36); Mean Corpuscular Volume 97.1 FL (87-102); Mean Platelet Volume 8.7 FL (9.6-12.0); Monocytes % 5.8 % (1.7-12.7); NRBC # 0.03 10*3/uL; Platelet Count 214 T/CUMM (130-400); Red Blood Count 2.43 MC/CUMM (3.8-5.5); White Blood Count 9.5 T/CUMM (4-12)
[2020-04-19 12:29] LABS: Alanine Aminotransferase 10 U/L (16-61); Albumin 2.7 G/DL (3.4-5.0); Alkaline Phosphatase 111 U/L (45-117); Aspartate Amino Transferase 14 U/L (0-37); Bilirubin,Total < 0.39 MG/DL (0.2-1.0); Blood Urea Nitrogen 55 MG/DL (7-18); Glucose 196 MG/DL (74-106); Osmolality,Calculated 287.2 MOS/KG (273-304); Total Protein 7.7 G/DL (6.4-8.3)
[2020-04-19 12:30] LABS: Estimated Glom Filtration Rate 0 ML/MIN
[2020-04-19] MEDS ORDERED: CLINDAMYCIN INJ 600 MG in PREMIX 1 EACH IV STA (13:39)
[2020-04-19 13:43] LABS: Apearance,Urine Slightly Hazy (Clear); Bacteria,Urine Occasional /HPF (Few); Bilirubin,Urine Negative (Negative); Blood, Urine Moderate mg/dL (Negative); Glucose,Urine (UA) 50 mg/dL (Negative); Hyaline Casts,Urine 1 /LPF (0-3); Ketones,Urine Negative (Negative); Mucus,Urine Occasional /LPF (Occasional); Nitrite,Urine Negative (Negative); Protein,Urine 100 MG/DL; RBC,Urine 8 /HPF (0-4); Urine Color Yellow (Yellow); Urine Specific Gravity 1.011 (1.001-1.035); Urine Urobilinogen < 2.0 EU/DL (0.2-1.0); WBC,Urine 6 /HPF (0-6)
[2020-04-19 14:00] LABS: Barbiturates Screen,Urine Negative (Negative); Benzodiazepines Screen,Urine Negative (Negative); Cannabinoid Screen,Urine Negative (Negative); Opiate Screen,Urine Positive (Negative); Phencyclidine Screen,Urine Negative (Negative)
[2020-04-19] MEDS ORDERED: LORazepam 2 MG/1 ML VIAL ONE (14:27)
[2020-04-19] MEDS ORDERED: LORazepam 2 MG/1 ML VIAL IV STA (14:30)
[2020-04-19] MEDS ORDERED: LABETALOL 20 MG/4 ML SYRINGE IV ONE (14:46)
[2020-04-19] MEDS ORDERED: LABETALOL 20 MG/4 ML SYRINGE IV STA (14:46)
[2020-04-19] MEDS ORDERED: ONDANSETRON 4 MG/2 ML VIAL IV PRN (17:49)
[2020-04-19] MEDS: ENALAPRIL 2.5 MG/2 ML VIAL IV SCH (18:15)
[2020-04-19] MEDS ORDERED: cloNIDine 0.3 MG/24 HR PATCH TRANSDERM SCH (18:30)
[2020-04-19] MEDS ORDERED: VANCOMYCIN INJ 1,500 MG in SODIUM CHLORIDE 0.9% 500 ML IV ONE (18:30)
[2020-04-20] MEDS: ENOXAPARIN 30 MG/0.3 ML SYRINGE SUBCUT SCH ×2 (00:57→21:23)
[2020-04-20] MEDS: CLINDAMYCIN INJ 600 MG in PREMIX 1 EACH IV SCH ×5 (00:57→20:17)
[2020-04-20] MEDS: ENALAPRIL 2.5 MG/2 ML VIAL IV SCH ×4 (04:17→18:11)
[2020-04-20 06:46] LABS: Basophils # 0.1 10*3/uL (0.0-0.2); Basophils % 0.6 % (0.0-0.8); Eosinophils # 0.4 10*3/uL (0.0-0.87); Eosinophils % 4.5 % (0.00-10.9); Hematocrit 18.9 VOL% (42.0-52.0); Immature Granulocytes Absolute 0.16 #; Lymphocytes # 1.6 10*3/uL (1.4-4.0); Lymphocytes % 19.5 % (21.2-54.2); Mean Corpuscular HGB Conc 29.1 GM/DL (32-36); Mean Corpuscular Volume 97.4 FL (87-102); Mean Platelet Volume 9.1 FL (9.6-12.0); Monocytes % 6.4 % (1.7-12.7); Platelet Count 164 T/CUMM (130-400); Red Blood Count 1.94 MC/CUMM (3.8-5.5); Red Cell Distribution Width 15.2 % (9.3-17.3)
[2020-04-20] MEDS ORDERED: SODIUM CHLORIDE 0.9% 1,000 ML IV PRN (06:57)
[2020-04-20] MEDS ORDERED: CLINDAMYCIN INJ 900 MG in PREMIX 1 EACH IV ONE (07:00)
[2020-04-20 07:03] LABS: Hemoglobin 5.5 GM/DL (14.0-18.0)
[2020-04-20 07:06] LABS: Alanine Aminotransferase < 9 U/L (16-61); Albumin 2.2 G/DL (3.4-5.0); Alkaline Phosphatase 83 U/L (45-117); Aspartate Amino Transferase 9 U/L (0-37); Blood Urea Nitrogen 57 MG/DL (7-18); Calcium 8.8 MG/DL (8.5-10.1); Estimated Glom Filtration Rate 11 ML/MIN; Glucose 151 MG/DL (74-106); Osmolality,Calculated 288.1 MOS/KG (273-304); Total Protein 6.3 G/DL (6.4-8.3)
[2020-04-20 07:07] LABS: Troponin I 0.975 NG/ML (0.00-0.045)
[2020-04-20 07:13] LABS: Hypochromasia 2+; Microcytosis 1+; Platelet Estimate Adequate
[2020-04-20] MEDS: PANTOPRAZOLE 40 MG TABLET PO SCH (08:17)
[2020-04-20] MEDS ORDERED: SUGAMMADEX 200 MG/2 ML VIAL IV ONE (08:51)
[2020-04-20] MEDS ORDERED: LIDOCAINE 2% 5 ML VIAL ONE (09:05)
[2020-04-20] MEDS ORDERED: propofoL 200 MG/20 ML VIAL IV ONE (09:05)
[2020-04-20] MEDS ORDERED: fentaNYL 100 MCG/2 ML VIAL ONE (09:06)
[2020-04-20] MEDS ORDERED: ONDANSETRON 4 MG/2 ML VIAL ONE (09:06)
[2020-04-20] MEDS ORDERED: DESFLURANE 1 UNIT/15 MINUTE INH ONE (09:06)
[2020-04-20] MEDS ORDERED: ROCURONIUM 100 MG/10 ML VIAL IV ONE (09:06)
[2020-04-20 09:41] LABS: Alanine Aminotransferase < 9 U/L (16-61); Albumin 2.2 G/DL (3.4-5.0); Alkaline Phosphatase 86 U/L (45-117); Aspartate Amino Transferase 9 U/L (0-37); Bilirubin,Total < 0.39 MG/DL (0.2-1.0); Blood Urea Nitrogen 57 MG/DL (7-18); Calcium 8.9 MG/DL (8.5-10.1); Estimated Glom Filtration Rate 11 ML/MIN; Glucose 151 MG/DL (74-106); Osmolality,Calculated 288.1 MOS/KG (273-304); Total Protein 6.6 G/DL (6.4-8.3)
[2020-04-20] MEDS: LORazepam 2 MG/1 ML VIAL IV PRN (22:54)
[2020-04-21] MEDS: ENALAPRIL 2.5 MG/2 ML VIAL IV SCH ×4 (00:14→18:09)
[2020-04-21] MEDS: CLINDAMYCIN INJ 600 MG in PREMIX 1 EACH IV SCH ×3 (03:06→14:15)
[2020-04-21] MEDS: LORazepam 2 MG/1 ML VIAL IV PRN (03:48)
[2020-04-21 05:01] LABS: Basophils % 0.5 % (0.0-0.8); Eosinophils # 0.6 10*3/uL (0.0-0.87); Eosinophils % 7.4 % (0.00-10.9); Hematocrit 21.3 VOL% (42.0-52.0); Hemoglobin 6.7 GM/DL (14.0-18.0); Immature Granulocytes % 2.1 %; Immature Granulocytes Absolute 0.18 #; Lymphocytes # 1.7 10*3/uL (1.4-4.0); Lymphocytes % 20.4 % (21.2-54.2); Mean Corpuscular HGB Conc 31.5 GM/DL (32-36); Mean Corpuscular Volume 93.8 FL (87-102); Mean Platelet Volume 9.1 FL (9.6-12.0); Monocytes % 6.1 % (1.7-12.7); Neutrophils % 63.5 % (38.7-73.9); Platelet Count 171 T/CUMM (130-400); Red Blood Count 2.27 MC/CUMM (3.8-5.5); Red Cell Distribution Width 15.6 % (9.3-17.3); White Blood Count 8.6 T/CUMM (4-12)
[2020-04-21 05:13] LABS: Calcium 8.3 MG/DL (8.5-10.1); Osmolality,Calculated 287.2 MOS/KG (273-304)
[2020-04-21] MEDS ORDERED: SODIUM CHLORIDE 0.9% 1,000 ML IV PRN (08:00)
[2020-04-21] MEDS: PANTOPRAZOLE 40 MG TABLET PO SCH (08:27)
[2020-04-21] MEDS ORDERED: cloNIDine 0.3 MG/24 HR PATCH TRANSDERM SCH (09:00)
[2020-04-21] MEDS ORDERED: HYDROmorphone 2 MG/1 ML VIAL IV PRN (11:58)
[2020-04-21] MEDS: HYDROmorphone 2 MG/1 ML VIAL IV PRN ×3 (14:09→21:28)
[2020-04-21] MEDS: GABAPENTIN 100 MG CAPSULE PO SCH ×2 (15:20→21:27)
[2020-04-21 15:53] LABS: Hematocrit 25.1 VOL% (42.0-52.0); Hemoglobin 7.7 GM/DL (14.0-18.0)
[2020-04-21] MEDS: VANCOMYCIN 50 MG/ML 60 ML/BOTTLE PO SCH (18:09)
[2020-04-21] MEDS: AMITRIPTYLINE 10 MG TABLET PO SCH (21:27)
[2020-04-21] MEDS: carvediloL 6.25 MG TABLET PO SCH (21:27)
[2020-04-21] MEDS: AZITHROMYCIN INJ 500 MG in SODIUM CHLORIDE 0.9% 250 ML IV SCH (21:34)
[2020-04-21] MEDS: ENOXAPARIN 30 MG/0.3 ML SYRINGE SUBCUT SCH (21:36)
[2020-04-22] MEDS: HYDROmorphone 2 MG/1 ML VIAL IV PRN ×6 (00:04→21:39)
[2020-04-22] MEDS: VANCOMYCIN 50 MG/ML 60 ML/BOTTLE PO SCH ×4 (00:04→18:29)
[2020-04-22] MEDS: ENALAPRIL 2.5 MG/2 ML VIAL IV SCH ×4 (00:21→18:29)
[2020-04-22 05:26] LABS: Basophils # 0.1 10*3/uL (0.0-0.2); Basophils % 0.5 % (0.0-0.8); Eosinophils # 0.9 10*3/uL (0.0-0.87); Eosinophils % 9.5 % (0.00-10.9); Hematocrit 24.7 VOL% (42.0-52.0); Hemoglobin 7.5 GM/DL (14.0-18.0); Immature Granulocytes % 3.1 %; Immature Granulocytes Absolute 0.28 #; Lymphocytes % 22.4 % (21.2-54.2); Mean Corpuscular HGB Conc 30.4 GM/DL (32-36); Mean Corpuscular Volume 95.4 FL (87-102); Mean Platelet Volume 9.3 FL (9.6-12.0); Monocytes % 6.2 % (1.7-12.7); Neutrophils % 58.3 % (38.7-73.9); Platelet Count 156 T/CUMM (130-400); Red Blood Count 2.59 MC/CUMM (3.8-5.5); Red Cell Distribution Width 15.9 % (9.3-17.3); White Blood Count 9.1 T/CUMM (4-12)
[2020-04-22 05:48] LABS: Osmolality,Calculated 288.1 MOS/KG (273-304)
[2020-04-22] MEDS: carvediloL 6.25 MG TABLET PO SCH ×3 (10:28→21:39)
[2020-04-22] MEDS: GABAPENTIN 100 MG CAPSULE PO SCH ×3 (10:28→21:39)
[2020-04-22] MEDS: PANTOPRAZOLE 40 MG TABLET PO SCH (10:29)
[2020-04-22] MEDS: AMITRIPTYLINE 10 MG TABLET PO SCH (21:39)
[2020-04-22] MEDS: AZITHROMYCIN INJ 500 MG in SODIUM CHLORIDE 0.9% 250 ML IV SCH (23:00)
[2020-04-23] MEDS: ENOXAPARIN 30 MG/0.3 ML SYRINGE SUBCUT SCH (00:04)
[2020-04-23] MEDS: VANCOMYCIN 50 MG/ML 60 ML/BOTTLE PO SCH ×3 (01:21→12:26)
[2020-04-23] MEDS: HYDROmorphone 2 MG/1 ML VIAL IV PRN ×2 (01:21→09:56)
[2020-04-23] MEDS: ENALAPRIL 2.5 MG/2 ML VIAL IV SCH ×3 (01:38→12:50)
[2020-04-23 04:56] LABS: Basophils # 0.1 10*3/uL (0.0-0.2); Basophils % 0.8 % (0.0-0.8); Eosinophils # 1.1 10*3/uL (0.0-0.87); Eosinophils % 11.2 % (0.00-10.9); Hematocrit 24.7 VOL% (42.0-52.0); Hemoglobin 7.5 GM/DL (14.0-18.0); Immature Granulocytes % 2.9 %; Immature Granulocytes Absolute 0.28 #; Lymphocytes # 2.3 10*3/uL (1.4-4.0); Lymphocytes % 23.5 % (21.2-54.2); Mean Corpuscular HGB Conc 30.4 GM/DL (32-36); Mean Corpuscular Volume 95.4 FL (87-102); Mean Platelet Volume 9.2 FL (9.6-12.0); Monocytes % 5.8 % (1.7-12.7); Neutrophils % 55.8 % (38.7-73.9); Platelet Count 155 T/CUMM (130-400); Red Blood Count 2.59 MC/CUMM (3.8-5.5); Red Cell Distribution Width 15.5 % (9.3-17.3); White Blood Count 9.7 T/CUMM (4-12)
[2020-04-23 05:26] LABS: Calcium 8.3 MG/DL (8.5-10.1); Osmolality,Calculated 288.2 MOS/KG (273-304)
[2020-04-23 08:13] LABS: Anisocytosis 1+; Band Neutrophils 3 % (0-10); Basophilic Stippling Slight; Eosinophils 17 % (0-10); Lymphocytes 26 % (20-55); Macrocytosis Slight; Platelet Estimate Normal; Segmented Neutrophils 48 % (50-85); Total Cells Counted 100
[2020-04-23] MEDS ORDERED: MULTIVITAMIN (BEROCCA) TABLET PO SCH (09:00)
[2020-04-23] MEDS: carvediloL 6.25 MG TABLET PO SCH (09:52)
[2020-04-23] MEDS: GABAPENTIN 100 MG CAPSULE PO SCH (09:52)
[2020-04-23] MEDS: PANTOPRAZOLE 40 MG TABLET PO SCH (09:52)
[2020-04-23 12:52] VITALS: BP 126/43
== END 2020-04-23 14:00 | disposition home health service (06) | DRG 907 ==
LOC: EDBD → EDUNIT# → N.ED 11:45 → SUATTDRO 16:27 → N.EDINP 16:27 → N.ICU 17:05 → N.3E 04-21 16:12
PROVIDERS: ADMIT Internal Medicine; ATTEND Internal Medicine Geriatric Medicine

== ENCOUNTER 2020-05-26 13:02 | Inpatient (IN) ==
[2020-05-26] MEDS ORDERED: NALOXONE 0.4 MG/ML VIAL ONE (13:57)
[2020-05-26] MEDS ORDERED: NALOXONE 0.4 MG/ML VIAL IV STA (14:00)
[2020-05-26] MEDS ORDERED: SODIUM CHLORIDE 0.9% 500 ML IV STA (14:00)
[2020-05-26] MEDS ORDERED: VANCOMYCIN INJ 1,000 MG in SODIUM CHLORIDE 0.9% 250 ML IV STA (15:09)
[2020-05-26] MEDS ORDERED: ONDANSETRON 4 MG/2 ML VIAL IV PRN (15:36)
[2020-05-26] MEDS ORDERED: ACETAMINOPHEN 325 MG TABLET PO PRN (15:36)
[2020-05-26] MEDS ORDERED: GLUCAGON 1 MG VIAL IM PRN ×2 (15:36)
[2020-05-26] MEDS ORDERED: DEXTROSE 50% 25 GM/50 ML VIAL IV PRN ×2 (15:36)
[2020-05-26] MEDS ORDERED: CALCIUM CARBONATE CHEW 500 MG TABLET PO PRN (15:42)
[2020-05-26] MEDS ORDERED: NALOXONE 0.4 MG/ML VIAL IV PRN (16:20)
[2020-05-26] MEDS ORDERED: NON-FORMULARY MEDICATION (Ferric Citrate [Auryxia] 420 MG) PO SCH (17:00)
[2020-05-26] MEDS: INSULIN REGULAR 100 UNIT/ML SUBCUT SCH ×2 (18:02→22:37)
[2020-05-26 20:12] LABS: Albumin 2.3 G/DL (3.4-5.0); Bilirubin,Total 0.5 MG/DL (0.2-1.0); Calcium 8.5 MG/DL (8.5-10.1); Osmolality,Calculated 281.1 MOS/KG (273-304)
[2020-05-26] MEDS: DOCUSATE SODIUM 100 MG CAPSULE PO SCH (20:41)
[2020-05-26] MEDS: AMITRIPTYLINE 10 MG TABLET PO SCH (20:41)
[2020-05-26] MEDS: ASPIRIN EC 81 MG TABLET PO SCH (20:41)
[2020-05-26] MEDS: GABAPENTIN 100 MG CAPSULE PO SCH (20:41)
[2020-05-26] MEDS: carvediloL 6.25 MG TABLET PO SCH (20:43)
[2020-05-26] MEDS ORDERED: VANCOMYCIN INJ 2,500 MG in SODIUM CHLORIDE 0.9% 500 ML IV ONE (23:00)
[2020-05-27 05:38] LABS: Basophils # 0.1 10*3/uL (0.0-0.2); Basophils % 0.6 % (0.0-0.8); Eosinophils # 0.3 10*3/uL (0.0-0.87); Hematocrit 25.5 VOL% (42.0-52.0); Hemoglobin 7.6 GM/DL (14.0-18.0); Immature Granulocytes % 1.1 %; Immature Granulocytes Absolute 0.11 #; Lymphocytes # 1.8 10*3/uL (1.4-4.0); Lymphocytes % 18.1 % (21.2-54.2); Mean Corpuscular HGB Conc 29.8 GM/DL (32-36); Mean Corpuscular Volume 96.6 FL (87-102); Mean Platelet Volume 9.2 FL (9.6-12.0); Monocytes % 6.1 % (1.7-12.7); NRBC # 0.02 10*3/uL; Neutrophils % 71.1 % (38.7-73.9); Platelet Count 237 T/CUMM (130-400); Red Blood Count 2.64 MC/CUMM (3.8-5.5); Red Cell Distribution Width 15.4 % (9.3-17.3); White Blood Count 10.1 T/CUMM (4-12)
[2020-05-27 06:06] LABS: Albumin 2.2 G/DL (3.4-5.0); Bilirubin,Total 1.2 MG/DL (0.2-1.0); Osmolality,Calculated 282.1 MOS/KG (273-304); Total Protein 6.1 G/DL (6.4-8.3)
[2020-05-27] MEDS ORDERED: LIDOCAINE 1%/EPI INJ 20 ML VIAL ONE (08:56)
[2020-05-27] MEDS ORDERED: SODIUM CHLORIDE 0.9% 250 ML IV SCH (09:30)
[2020-05-27] MEDS: INSULIN REGULAR 100 UNIT/ML SUBCUT SCH ×4 (10:25→22:40)
[2020-05-27] MEDS ORDERED: LIDOCAINE 2% 5 ML VIAL ONE (10:38)
[2020-05-27] MEDS ORDERED: propofoL 200 MG/20 ML VIAL IV ONE (10:38)
[2020-05-27] MEDS ORDERED: SEVOFLURANE 1 UNIT/15 MINUTE INH ONE (10:38)
[2020-05-27] MEDS: GABAPENTIN 100 MG CAPSULE PO SCH ×3 (14:11→21:00)
[2020-05-27] MEDS: carvediloL 6.25 MG TABLET PO SCH ×2 (14:12→18:01)
[2020-05-27] MEDS ORDERED: VANCOMYCIN INJ 1,250 MG in SODIUM CHLORIDE 0.9% 250 ML IV ONE (17:00)
[2020-05-27] MEDS ORDERED: VANCOMYCIN INJ 1,250 MG in SODIUM CHLORIDE 0.9% 250 ML IV PRN (17:00)
[2020-05-27] MEDS: LEVOFLOXACIN INJ 500 MG in PREMIX 1 EACH IV SCH (17:00)
[2020-05-27] MEDS: PANTOPRAZOLE 40 MG TABLET PO SCH (18:01)
[2020-05-27] MEDS: metOLazone 5 MG TABLET PO SCH (18:01)
[2020-05-27] MEDS: TORSEMIDE 20 MG TABLET PO SCH (18:01)
[2020-05-27] MEDS: ASPIRIN EC 81 MG TABLET PO SCH (21:00)
[2020-05-27] MEDS: DOCUSATE SODIUM 100 MG CAPSULE PO SCH (21:00)
[2020-05-27] MEDS: AMITRIPTYLINE 10 MG TABLET PO SCH (21:00)
[2020-05-27] MEDS: HYDROmorphone 2 MG/1 ML VIAL IV PRN (23:03)
[2020-05-28] MEDS: HYDROmorphone 2 MG/1 ML VIAL IV PRN ×4 (03:00→19:55)
[2020-05-28 05:37] LABS: Basophils # 0.1 10*3/uL (0.0-0.2); Basophils % 0.6 % (0.0-0.8); Eosinophils # 0.4 10*3/uL (0.0-0.87); Eosinophils % 3.9 % (0.00-10.9); Hematocrit 26.5 VOL% (42.0-52.0); Hemoglobin 7.6 GM/DL (14.0-18.0); Immature Granulocytes % 1.1 %; Lymphocytes # 1.9 10*3/uL (1.4-4.0); Mean Corpuscular HGB Conc 28.7 GM/DL (32-36); Mean Corpuscular Volume 98.5 FL (87-102); Mean Platelet Volume 9.1 FL (9.6-12.0); Monocytes % 6.4 % (1.7-12.7); Platelet Count 248 T/CUMM (130-400); Red Blood Count 2.69 MC/CUMM (3.8-5.5); Red Cell Distribution Width 15.2 % (9.3-17.3); White Blood Count 9.5 T/CUMM (4-12)
[2020-05-28 05:57] LABS: Calcium 8.3 MG/DL (8.5-10.1); Osmolality,Calculated 279.1 MOS/KG (273-304)
[2020-05-28] MEDS: MULTIVITAMIN (BEROCCA) TABLET PO SCH (09:26)
[2020-05-28] MEDS: GABAPENTIN 100 MG CAPSULE PO SCH ×3 (09:26→21:13)
[2020-05-28] MEDS: metOLazone 5 MG TABLET PO SCH (09:26)
[2020-05-28] MEDS: PANTOPRAZOLE 40 MG TABLET PO SCH (09:26)
[2020-05-28] MEDS: INSULIN REGULAR 100 UNIT/ML SUBCUT SCH ×4 (09:26→21:16)
[2020-05-28] MEDS: carvediloL 6.25 MG TABLET PO SCH ×2 (09:26→17:01)
[2020-05-28] MEDS: TORSEMIDE 20 MG TABLET PO SCH ×2 (11:18→15:15)
[2020-05-28] MEDS: POTASSIUM CHLORIDE 20 MEQ TABLET PO PRN ×3 (13:43→19:03)
[2020-05-28 14:17] LABS: Hepatitis B Core IgM Quant 0.23 Index; Hepatitis B Surface Ag Quant < 0.10 Index; Hepatitis B Surface Ag Result Negative (Negative); Hepatitis C Virus Ab Result Negative (Negative)
[2020-05-28] MEDS ORDERED: VANCOMYCIN INJ 1,250 MG in SODIUM CHLORIDE 0.9% 250 ML IV ONE (17:00)
[2020-05-28] MEDS ORDERED: INSULIN GLARGINE 100 UNIT/ML SUBCUT SCH (21:00)
[2020-05-28] MEDS: ASPIRIN EC 81 MG TABLET PO SCH (21:14)
[2020-05-28] MEDS: AMITRIPTYLINE 10 MG TABLET PO SCH (21:14)
[2020-05-28] MEDS: DOCUSATE SODIUM 100 MG CAPSULE PO SCH (21:14)
[2020-05-29] MEDS: HYDROmorphone 2 MG/1 ML VIAL IV PRN ×5 (00:09→21:32)
[2020-05-29 07:45] LABS: Calcium 8.1 MG/DL (8.5-10.1); Osmolality,Calculated 278.1 MOS/KG (273-304)
[2020-05-29] MEDS ORDERED: DEXTROSE 50% 25 GM/50 ML VIAL IV PRN (09:44)
[2020-05-29] MEDS ORDERED: GLUCAGON 1 MG VIAL IM PRN (09:44)
[2020-05-29] MEDS: GABAPENTIN 100 MG CAPSULE PO SCH ×3 (09:49→21:33)
[2020-05-29] MEDS: MULTIVITAMIN (BEROCCA) TABLET PO SCH (09:49)
[2020-05-29] MEDS: PANTOPRAZOLE 40 MG TABLET PO SCH (09:49)
[2020-05-29] MEDS: INSULIN REGULAR 100 UNIT/ML SUBCUT SCH ×4 (09:50→21:37)
[2020-05-29] MEDS: metOLazone 5 MG TABLET PO SCH (09:53)
[2020-05-29] MEDS: TORSEMIDE 20 MG TABLET PO SCH (09:54)
[2020-05-29] MEDS: carvediloL 6.25 MG TABLET PO SCH ×2 (10:25→18:44)
[2020-05-29] MEDS: LEVOFLOXACIN INJ 500 MG in PREMIX 1 EACH IV SCH (15:43)
[2020-05-29] MEDS ORDERED: VANCOMYCIN INJ 1,250 MG in SODIUM CHLORIDE 0.9% 250 ML IV PRN (15:43)
[2020-05-29] MEDS ORDERED: VANCOMYCIN INJ 1,250 MG in SODIUM CHLORIDE 0.9% 250 ML IV ONE (18:00)
[2020-05-29] MEDS: DOCUSATE SODIUM 100 MG CAPSULE PO SCH (21:33)
[2020-05-29] MEDS: ASPIRIN EC 81 MG TABLET PO SCH (21:33)
[2020-05-29] MEDS: AMITRIPTYLINE 10 MG TABLET PO SCH (21:33)
[2020-05-29] MEDS: INSULIN GLARGINE 100 UNIT/ML SUBCUT SCH (21:35)
[2020-05-30] MEDS: HYDROmorphone 2 MG/1 ML VIAL IV PRN ×5 (01:40→22:45)
[2020-05-30 05:50] LABS: Basophils # 0.1 10*3/uL (0.0-0.2); Basophils % 0.7 % (0.0-0.8); Eosinophils # 0.4 10*3/uL (0.0-0.87); Eosinophils % 4.5 % (0.00-10.9); Hematocrit 26.2 VOL% (42.0-52.0); Hemoglobin 7.7 GM/DL (14.0-18.0); Immature Granulocytes Absolute 0.09 #; Lymphocytes # 2.1 10*3/uL (1.4-4.0); Lymphocytes % 23.5 % (21.2-54.2); Mean Corpuscular HGB Conc 29.4 GM/DL (32-36); Mean Corpuscular Volume 96.3 FL (87-102); Mean Platelet Volume 9.7 FL (9.6-12.0); Monocytes % 6.1 % (1.7-12.7); Neutrophils % 64.2 % (38.7-73.9); Platelet Count 246 T/CUMM (130-400); Red Blood Count 2.72 MC/CUMM (3.8-5.5); Red Cell Distribution Width 14.8 % (9.3-17.3); White Blood Count 8.9 T/CUMM (4-12)
[2020-05-30 06:14] LABS: Albumin 2.1 G/DL (3.4-5.0); Bilirubin,Total 0.6 MG/DL (0.2-1.0); Calcium 8.1 MG/DL (8.5-10.1); Total Protein 6.3 G/DL (6.4-8.3)
[2020-05-30] MEDS: GABAPENTIN 100 MG CAPSULE PO SCH ×3 (09:46→22:43)
[2020-05-30] MEDS: PANTOPRAZOLE 40 MG TABLET PO SCH (09:46)
[2020-05-30] MEDS: MULTIVITAMIN (BEROCCA) TABLET PO SCH (09:46)
[2020-05-30] MEDS: TORSEMIDE 20 MG TABLET PO SCH (09:46)
[2020-05-30] MEDS: metOLazone 5 MG TABLET PO SCH (09:46)
[2020-05-30] MEDS: carvediloL 6.25 MG TABLET PO SCH ×2 (09:46→18:21)
[2020-05-30] MEDS: INSULIN REGULAR 100 UNIT/ML SUBCUT SCH ×4 (09:47→22:49)
[2020-05-30] MEDS: AMITRIPTYLINE 10 MG TABLET PO SCH (22:43)
[2020-05-30] MEDS: DOCUSATE SODIUM 100 MG CAPSULE PO SCH (22:44)
[2020-05-30] MEDS: ASPIRIN EC 81 MG TABLET PO SCH (22:44)
[2020-05-30] MEDS: INSULIN GLARGINE 100 UNIT/ML SUBCUT SCH (22:50)
[2020-05-31] MEDS: HYDROmorphone 2 MG/1 ML VIAL IV PRN ×3 (03:26→21:17)
[2020-05-31] MEDS: MULTIVITAMIN (BEROCCA) TABLET PO SCH (09:09)
[2020-05-31] MEDS: INSULIN REGULAR 100 UNIT/ML SUBCUT SCH ×4 (09:09→21:16)
[2020-05-31] MEDS: PANTOPRAZOLE 40 MG TABLET PO SCH (09:09)
[2020-05-31] MEDS: TORSEMIDE 20 MG TABLET PO SCH (09:09)
[2020-05-31] MEDS: carvediloL 6.25 MG TABLET PO SCH ×2 (09:09→16:28)
[2020-05-31] MEDS: metOLazone 5 MG TABLET PO SCH (09:09)
[2020-05-31] MEDS: GABAPENTIN 100 MG CAPSULE PO SCH ×3 (09:09→21:15)
[2020-05-31] MEDS ORDERED: VANCOMYCIN INJ 1,000 MG in SODIUM CHLORIDE 0.9% 250 ML IV ONE (13:50)
[2020-05-31] MEDS ORDERED: MIDAZOLAM 2 MG/2 ML VIAL IV ONE (13:50)
[2020-05-31] MEDS ORDERED: fentaNYL 100 MCG/2 ML VIAL IV ONE (13:50)
[2020-05-31] MEDS ORDERED: HEPARIN/NACL 0.9% 2 UNITS/ML 2,000 ML IV ONE (13:53)
[2020-05-31] MEDS ORDERED: MIDAZOLAM 2 MG/2 ML VIAL ONE (14:26)
[2020-05-31] MEDS ORDERED: fentaNYL 100 MCG/2 ML VIAL ONE ×2 (14:26→14:27)
[2020-05-31] MEDS: HEPARIN 5,000 UNIT/1 ML VIAL SUBCUT SCH (15:35)
[2020-05-31] MEDS: LEVOFLOXACIN INJ 500 MG in PREMIX 1 EACH IV SCH (17:14)
[2020-05-31] MEDS: DOCUSATE SODIUM 100 MG CAPSULE PO SCH (21:15)
[2020-05-31] MEDS: AMITRIPTYLINE 10 MG TABLET PO SCH (21:16)
[2020-05-31] MEDS: ASPIRIN EC 81 MG TABLET PO SCH (21:16)
[2020-05-31] MEDS: INSULIN GLARGINE 100 UNIT/ML SUBCUT SCH (21:16)
[2020-06-01] MEDS: HEPARIN 5,000 UNIT/1 ML VIAL SUBCUT SCH ×3 (00:38→23:18)
[2020-06-01] MEDS: HYDROmorphone 2 MG/1 ML VIAL IV PRN ×5 (01:55→22:14)
[2020-06-01 05:33] LABS: Basophils # 0.1 10*3/uL (0.0-0.2); Basophils % 0.8 % (0.0-0.8); Eosinophils # 0.6 10*3/uL (0.0-0.87); Eosinophils % 6.4 % (0.00-10.9); Hematocrit 28.4 VOL% (42.0-52.0); Hemoglobin 8.2 GM/DL (14.0-18.0); Immature Granulocytes % 1.3 %; Immature Granulocytes Absolute 0.12 #; Lymphocytes # 1.7 10*3/uL (1.4-4.0); Lymphocytes % 19.6 % (21.2-54.2); Mean Corpuscular HGB Conc 28.9 GM/DL (32-36); Mean Corpuscular Volume 96.3 FL (87-102); Mean Platelet Volume 9.2 FL (9.6-12.0); Monocytes % 4.8 % (1.7-12.7); Neutrophils % 67.1 % (38.7-73.9); Platelet Count 267 T/CUMM (130-400); Red Blood Count 2.95 MC/CUMM (3.8-5.5); Red Cell Distribution Width 14.7 % (9.3-17.3); White Blood Count 8.9 T/CUMM (4-12)
[2020-06-01] MEDS ORDERED: CLINDAMYCIN INJ 900 MG in PREMIX 1 EACH IV ONE (06:00)
[2020-06-01 06:08] LABS: Hypochromasia 1+; Microcytosis Slight; Platelet Estimate Adequate
[2020-06-01 06:16] LABS: Calcium 8.2 MG/DL (8.5-10.1)
[2020-06-01] MEDS: INSULIN REGULAR 100 UNIT/ML SUBCUT SCH ×4 (07:26→20:22)
[2020-06-01] MEDS ORDERED: SUGAMMADEX 200 MG/2 ML VIAL IV ONE (08:39)
[2020-06-01] MEDS ORDERED: SEVOFLURANE 1 UNIT/15 MINUTE INH ONE (09:10)
[2020-06-01] MEDS ORDERED: LIDOCAINE 2% 5 ML VIAL ONE (09:10)
[2020-06-01] MEDS ORDERED: propofoL 200 MG/20 ML VIAL IV ONE (09:10)
[2020-06-01] MEDS ORDERED: fentaNYL 100 MCG/2 ML VIAL ONE (09:11)
[2020-06-01] MEDS ORDERED: ROCURONIUM 100 MG/10 ML VIAL IV ONE (09:11)
[2020-06-01] MEDS ORDERED: MIDAZOLAM 2 MG/2 ML VIAL ONE (09:11)
[2020-06-01] MEDS ORDERED: ONDANSETRON 4 MG/2 ML VIAL ONE (09:11)
[2020-06-01] MEDS ORDERED: SODIUM CHLORIDE 0.9% 250 ML IV ONE (09:11)
[2020-06-01] MEDS ORDERED: HYDROmorphone 2 MG/1 ML VIAL IV PRN (09:19)
[2020-06-01] MEDS ORDERED: HYDROmorphone 2 MG/1 ML VIAL ONE (09:20)
[2020-06-01] MEDS: TORSEMIDE 20 MG TABLET PO SCH (10:20)
[2020-06-01] MEDS: MULTIVITAMIN (BEROCCA) TABLET PO SCH (10:20)
[2020-06-01] MEDS: carvediloL 6.25 MG TABLET PO SCH ×2 (10:20→17:20)
[2020-06-01] MEDS: metOLazone 5 MG TABLET PO SCH (10:20)
[2020-06-01] MEDS: PANTOPRAZOLE 40 MG TABLET PO SCH (10:21)
[2020-06-01] MEDS: GABAPENTIN 100 MG CAPSULE PO SCH ×3 (10:21→20:19)
[2020-06-01] MEDS: AMITRIPTYLINE 10 MG TABLET PO SCH (20:19)
[2020-06-01] MEDS: ASPIRIN EC 81 MG TABLET PO SCH (20:19)
[2020-06-01] MEDS: INSULIN GLARGINE 100 UNIT/ML SUBCUT SCH (20:19)
[2020-06-01] MEDS: DOCUSATE SODIUM 100 MG CAPSULE PO SCH (20:20)
[2020-06-02] MEDS: HYDROmorphone 2 MG/1 ML VIAL IV PRN (07:34)
[2020-06-02] MEDS: INSULIN REGULAR 100 UNIT/ML SUBCUT SCH ×2 (07:49→12:28)
[2020-06-02] MEDS: carvediloL 6.25 MG TABLET PO SCH (09:15)
[2020-06-02] MEDS: TORSEMIDE 20 MG TABLET PO SCH (09:15)
[2020-06-02] MEDS: PANTOPRAZOLE 40 MG TABLET PO SCH (09:16)
[2020-06-02] MEDS: MULTIVITAMIN (BEROCCA) TABLET PO SCH (09:16)
[2020-06-02] MEDS: metOLazone 5 MG TABLET PO SCH (09:16)
[2020-06-02] MEDS: GABAPENTIN 100 MG CAPSULE PO SCH (09:16)
[2020-06-02 11:33] VITALS: BP 132/51
[2020-06-02] MEDS: HEPARIN 5,000 UNIT/1 ML VIAL SUBCUT SCH (13:04)
[2020-06-02] MEDS: LEVOFLOXACIN INJ 500 MG in PREMIX 1 EACH IV SCH (13:36)
== END 2020-06-02 14:02 | disposition home health service (06) | DRG 853 ==
LOC: EDBD → EDUNIT# → N.ED 13:02 → N.EDINP 15:36 → SUATTDRO 15:36 → N.EDINP 16:56 → N.TELEN 17:41
PROVIDERS: ADMIT Emergency Medicine; ATTEND Internal Medicine

== ENCOUNTER 2020-08-15 12:21 | Inpatient (IN) ==
[2020-08-15] MEDS ORDERED: hydrALAZINE 20 MG/1 ML VIAL IV PRN (14:32)
[2020-08-15] MEDS ORDERED: ONDANSETRON 4 MG/2 ML VIAL IV PRN (14:32)
[2020-08-15] MEDS ORDERED: ALBUTEROL 2.5 MG/3 ML NEB RESP TX PRN (14:32)
[2020-08-15] MEDS ORDERED: MIDAZOLAM 2 MG/2 ML VIAL ONE (14:41)
[2020-08-15] MEDS ORDERED: MIDAZOLAM 2 MG/2 ML VIAL IV ONE (14:43)
[2020-08-15] MEDS ORDERED: GLUCAGON 1 MG VIAL IM PRN (14:51)
[2020-08-15] MEDS ORDERED: DEXTROSE 50% 25 GM/50 ML VIAL IV PRN (14:51)
[2020-08-15] MEDS ORDERED: VANCOMYCIN INJ 1,000 MG in SODIUM CHLORIDE 0.9% 250 ML IV ONE ×2 (14:53→21:00)
[2020-08-15] MEDS ORDERED: LEVOFLOXACIN INJ 500 MG in PREMIX 1 EACH IV SCH (15:00)
[2020-08-15 15:10] LABS: ABG Base Excess -3.3 MMOL/L (-2.5-2.5); ABG HCO3 22.1 MMOL/L (20-26); ABG Oxygen Saturation 97.7 % (95-100); ABG PCO2 41.3 MM HG (35-48); ABG PH 7.347 (7.35-7.45); ABG PO2 110.4 MM HG (80-95); ABG TCO2 23.4 MMOL/L (23-27)
[2020-08-15] MEDS ORDERED: cefTRIAXone 1,000 MG in SYRINGE 1 EACH IV SCH (15:30)
[2020-08-15] MEDS ORDERED: CEFEPIME 1,000 MG in SODIUM CHLORIDE 0.9% 100 ML IV SCH (15:30)
[2020-08-15 15:35] LABS: Basophils % 0.1 % (0.0-0.8); Hematocrit 29.6 VOL% (42.0-52.0); Hemoglobin 8.5 GM/DL (14.0-18.0); Immature Granulocytes % 1.1 %; Immature Granulocytes Absolute 0.16 #; Lymphocytes # 0.4 10*3/uL (1.4-4.0); Lymphocytes % 2.6 % (21.2-54.2); Mean Corpuscular HGB Conc 28.7 GM/DL (32-36); Mean Corpuscular Volume 91.4 FL (87-102); Mean Platelet Volume 9.1 FL (9.6-12.0); Monocytes % 3.5 % (1.7-12.7); Neutrophils % 92.7 % (38.7-73.9); Platelet Count 198 T/CUMM (130-400); Red Blood Count 3.24 MC/CUMM (3.8-5.5); Red Cell Distribution Width 17.2 % (9.3-17.3); White Blood Count 14.9 T/CUMM (4-12)
[2020-08-15 15:46] LABS: INR 1.1; PT Patient Result 11.5 SECS (9.8-11.9)
[2020-08-15 15:58] LABS: Hypochromasia 2+; Lymphocytes 1 % (20-55); Segmented Neutrophils 96 % (50-85); Total Cells Counted 100
[2020-08-15 15:59] LABS: Albumin 2.4 G/DL (3.4-5.0); Bilirubin,Total 0.6 MG/DL (0.2-1.0); Burr Cells Few; Calcium 8.6 MG/DL (8.5-10.1); Schistocytes Few; Tear Drop Cells Few; Thyroid Stimulating Hormone 1.26 uIU/ml (0.358-3.74); Total Protein 6.6 G/DL (6.4-8.3); VLDL CHOLESTEROL 13.2 MG/DL
[2020-08-15 16:00] LABS: Anisocytosis 1+; Platelet Estimate Adequate
[2020-08-15] MEDS: NOREPINEPHRINE 8 MG in SODIUM CHLORIDE 0.9% 242 ML IV SCH (17:10)
[2020-08-15] MEDS: PANTOPRAZOLE 40 MG VIAL IV SCH (17:24)
[2020-08-15] MEDS: HEPARIN 5,000 UNIT/1 ML VIAL SUBCUT SCH ×2 (17:29→23:17)
[2020-08-15] MEDS: INSULIN REGULAR 100 UNIT/ML SUBCUT SCH (17:34)
[2020-08-15] MEDS ORDERED: ALBUTEROL/IPRATROPIUM 3 ML NEB RESP TX SCH (19:00)
[2020-08-15] MEDS: ALBUTEROL/IPRATROPIUM 3 ML NEB RESP TX SCH (19:47)
[2020-08-15] MEDS ORDERED: GENTAMICIN INJ 120 MG in PREMIX 1 EACH IV ONE (21:00)
[2020-08-15] MEDS: DOCUSATE SODIUM 100 MG CAPSULE PO SCH (21:31)
[2020-08-15] MEDS: carvediloL 6.25 MG TABLET PO SCH (21:31)
[2020-08-15] MEDS: ESCITALOPRAM 10 MG TABLET PO SCH (21:31)
[2020-08-15] MEDS: ASPIRIN EC 81 MG TABLET PO SCH (21:31)
[2020-08-16] MEDS ORDERED: VANCOMYCIN INJ 1,000 MG in SODIUM CHLORIDE 0.9% 250 ML IV ONE (01:00)
[2020-08-16] MEDS ORDERED: GENTAMICIN INJ 120 MG in PREMIX 1 EACH IV ONE (01:00)
[2020-08-16] MEDS: ALBUTEROL/IPRATROPIUM 3 ML NEB RESP TX SCH ×4 (01:08→19:44)
[2020-08-16] MEDS: INSULIN REGULAR 100 UNIT/ML SUBCUT SCH ×5 (01:16→23:24)
[2020-08-16] MEDS: CEFEPIME 1,000 MG in SODIUM CHLORIDE 0.9% 100 ML IV SCH (02:05)
[2020-08-16 04:57] LABS: Basophils # 0.1 10*3/uL (0.0-0.2); Basophils % 0.4 % (0.0-0.8); Hematocrit 26.7 VOL% (42.0-52.0); Hemoglobin 7.9 GM/DL (14.0-18.0); Immature Granulocytes % 0.7 %; Immature Granulocytes Absolute 0.08 #; Mean Corpuscular HGB Conc 29.6 GM/DL (32-36); Mean Corpuscular Volume 91.4 FL (87-102); Monocytes % 4.4 % (1.7-12.7); Neutrophils % 86.5 % (38.7-73.9); Platelet Count 205 T/CUMM (130-400); Red Blood Count 2.92 MC/CUMM (3.8-5.5); Red Cell Distribution Width 17.3 % (9.3-17.3); White Blood Count 12.2 T/CUMM (4-12)
[2020-08-16 05:14] LABS: Albumin 2.3 G/DL (3.4-5.0); Bilirubin,Total 0.5 MG/DL (0.2-1.0); Calcium 8.3 MG/DL (8.5-10.1); Osmolality,Calculated 287.7 MOS/KG (273-304); Total Protein 6.2 G/DL (6.4-8.3)
[2020-08-16] MEDS: HEPARIN 5,000 UNIT/1 ML VIAL SUBCUT SCH ×3 (06:10→23:22)
[2020-08-16 06:12] LABS: Hepatitis B Surface Ag Quant < 0.10 Index; Hepatitis B Surface Ag Result Negative (Negative)
[2020-08-16 08:06] LABS: ABG Base Excess -1.3 MMOL/L (-2.5-2.5); ABG HCO3 23.4 MMOL/L (20-26); ABG Oxygen Saturation 99.3 % (95-100); ABG PCO2 38.4 MM HG (35-48); ABG PH 7.393 (7.35-7.45); ABG TCO2 21.9 MMOL/L (23-27)
[2020-08-16] MEDS: metOLazone 5 MG TABLET PO SCH (08:27)
[2020-08-16] MEDS: TORSEMIDE 20 MG TABLET PO SCH (08:27)
[2020-08-16] MEDS: carvediloL 6.25 MG TABLET PO SCH ×2 (08:28→21:56)
[2020-08-16] MEDS: NON-FORMULARY MEDICATION (Ferric Citrate [Auryxia] 210 mg iron tablet) PO SCH ×3 (09:11→17:49)
[2020-08-16] MEDS: MIDAZOLAM 100 MG in SODIUM CHLORIDE 0.9% 80 ML IV PRN (10:16)
[2020-08-16] MEDS: SODIUM HYPOCHLORITE 0.25% IRRIG 473 ML BOTTLE TOP SCH ×2 (11:24→21:58)
[2020-08-16 11:45] LABS: Bacteria,Urine Many /HPF (Few); Bilirubin,Urine Negative (Negative); Blood, Urine Large mg/dL (Negative); Glucose,Urine (UA) Negative (Negative); Ketones,Urine Negative (Negative); Mucus,Urine Occasional /LPF (Occasional); Nitrite,Urine Negative (Negative); Protein,Urine 100 MG/DL; RBC,Urine 85 /HPF (0-4); Urine Appearance CLOUDY (Clear); Urine Color Yellow (Yellow); Urine Specific Gravity 1.011 (1.001-1.035); Urine Urobilinogen < 2.0 EU/DL (0.2-1.0); WBC,Urine 960 /HPF (0-6)
[2020-08-16] MEDS: MORPHINE 4 MG/1 ML VIAL IV PRN (12:05)
[2020-08-16 14:14] LABS: Hepatitis B Core IgM Quant 0.15 Index; Hepatitis B Surface Ag Quant < 0.10 Index; Hepatitis B Surface Ag Result Negative (Negative); Hepatitis C Virus Ab Quant 0.11 Index; Hepatitis C Virus Ab Result Negative (Negative)
[2020-08-16] MEDS: PANTOPRAZOLE 40 MG VIAL IV SCH (15:35)
[2020-08-16] MEDS: NOREPINEPHRINE 8 MG in SODIUM CHLORIDE 0.9% 242 ML IV SCH (15:35)
[2020-08-16 21:29] LABS: Barbiturates Screen,Urine Negative (Negative); Benzodiazepines Screen,Urine Positive (Negative); Cannabinoid Screen,Urine Negative (Negative); Opiate Screen,Urine Positive (Negative); Phencyclidine Screen,Urine Negative (Negative)
[2020-08-16] MEDS: DOCUSATE SODIUM 100 MG CAPSULE PO SCH (21:56)
[2020-08-16] MEDS: ASPIRIN EC 81 MG TABLET PO SCH (21:56)
[2020-08-16] MEDS: ESCITALOPRAM 10 MG TABLET PO SCH (21:56)
[2020-08-17] MEDS: ALBUTEROL/IPRATROPIUM 3 ML NEB RESP TX SCH ×4 (00:02→20:29)
[2020-08-17] MEDS: CEFEPIME 1,000 MG in SODIUM CHLORIDE 0.9% 100 ML IV SCH (01:52)
[2020-08-17 04:44] LABS: Allen Test Positive; Pt O2 Delivery Device Ventilator
[2020-08-17 04:54] LABS: ABG Base Excess 1.1 MMOL/L (-2.5-2.5); ABG HCO3 25.5 MMOL/L (20-26); ABG Oxygen Saturation 98.8 % (95-100); ABG PCO2 46.1 MM HG (35-48); ABG TCO2 25.1 MMOL/L (23-27)
[2020-08-17 04:57] LABS: Basophils # 0.1 10*3/uL (0.0-0.2); Eosinophils # 0.1 10*3/uL (0.0-0.87); Eosinophils % 1.2 % (0.00-10.9); Hematocrit 25.6 VOL% (42.0-52.0); Immature Granulocytes % 0.5 %; Immature Granulocytes Absolute 0.04 #; Lymphocytes # 1.1 10*3/uL (1.4-4.0); Lymphocytes % 12.6 % (21.2-54.2); Mean Corpuscular HGB Conc 28.9 GM/DL (32-36); Mean Corpuscular Volume 93.4 FL (87-102); Mean Platelet Volume 9.2 FL (9.6-12.0); Monocytes % 6.9 % (1.7-12.7); Neutrophils % 77.8 % (38.7-73.9); Platelet Count 182 T/CUMM (130-400); Red Blood Count 2.74 MC/CUMM (3.8-5.5); Red Cell Distribution Width 17.4 % (9.3-17.3); White Blood Count 8.7 T/CUMM (4-12)
[2020-08-17 04:59] LABS: Hemoglobin 7.4 GM/DL (14.0-18.0)
[2020-08-17 05:12] LABS: Osmolality,Calculated 277.1 MOS/KG (273-304)
[2020-08-17] MEDS: INSULIN REGULAR 100 UNIT/ML SUBCUT SCH ×3 (05:24→18:11)
[2020-08-17] MEDS: HEPARIN 5,000 UNIT/1 ML VIAL SUBCUT SCH ×3 (07:40→23:07)
[2020-08-17] MEDS: SODIUM HYPOCHLORITE 0.25% IRRIG 473 ML BOTTLE TOP SCH ×2 (08:11→21:06)
[2020-08-17] MEDS: metOLazone 5 MG TABLET PO SCH (08:11)
[2020-08-17] MEDS: ACETAMINOPHEN 325 MG TABLET PO PRN ×2 (08:11→21:04)
[2020-08-17] MEDS: TORSEMIDE 20 MG TABLET PO SCH (08:11)
[2020-08-17] MEDS: carvediloL 6.25 MG TABLET PO SCH ×2 (08:11→21:04)
[2020-08-17] MEDS: NON-FORMULARY MEDICATION (Ferric Citrate [Auryxia] 210 mg iron tablet) PO SCH ×3 (08:12→17:18)
[2020-08-17] MEDS: ASPIRIN CHEW 81 MG TABLET PO SCH (09:53)
[2020-08-17] MEDS: MIDAZOLAM 100 MG in SODIUM CHLORIDE 0.9% 80 ML IV PRN (12:57)
[2020-08-17] MEDS: NOREPINEPHRINE 8 MG in SODIUM CHLORIDE 0.9% 242 ML IV SCH (15:02)
[2020-08-17] MEDS: PANTOPRAZOLE 40 MG VIAL IV SCH (15:02)
[2020-08-17] MEDS: ESCITALOPRAM 10 MG TABLET PO SCH (21:03)
[2020-08-17] MEDS: ROSUVASTATIN 20 MG TABLET PO SCH (21:04)
[2020-08-17] MEDS: DOCUSATE SODIUM 100 MG CAPSULE PO SCH (21:04)
[2020-08-18] MEDS: ALBUTEROL/IPRATROPIUM 3 ML NEB RESP TX SCH ×4 (00:27→19:43)
[2020-08-18] MEDS: INSULIN REGULAR 100 UNIT/ML SUBCUT SCH ×5 (00:39→23:38)
[2020-08-18] MEDS: CEFEPIME 1,000 MG in SODIUM CHLORIDE 0.9% 100 ML IV SCH (01:12)
[2020-08-18] MEDS: cloNIDine 0.3 MG/24 HR PATCH TRANSDERM SCH ×2 (03:43→09:49)
[2020-08-18 03:52] LABS: ABG Base Excess -1.4 MMOL/L (-2.5-2.5); ABG HCO3 23.3 MMOL/L (20-26); ABG Oxygen Saturation 98.4 % (95-100); ABG PCO2 45.3 MM HG (35-48); ABG PH 7.341 (7.35-7.45); ABG TCO2 22.8 MMOL/L (23-27); Allen Test Positive; Pt O2 Delivery Device Ventilator
[2020-08-18 04:21] LABS: Basophils # 0.1 10*3/uL (0.0-0.2); Basophils % 0.7 % (0.0-0.8); Eosinophils # 0.2 10*3/uL (0.0-0.87); Hematocrit 25.9 VOL% (42.0-52.0); Hemoglobin 7.4 GM/DL (14.0-18.0); Immature Granulocytes Absolute 0.09 #; Lymphocytes # 1.1 10*3/uL (1.4-4.0); Lymphocytes % 12.3 % (21.2-54.2); Mean Corpuscular HGB Conc 28.6 GM/DL (32-36); Mean Corpuscular Volume 92.8 FL (87-102); Mean Platelet Volume 9.4 FL (9.6-12.0); Platelet Count 178 T/CUMM (130-400); Red Blood Count 2.79 MC/CUMM (3.8-5.5); Red Cell Distribution Width 17.2 % (9.3-17.3); White Blood Count 8.7 T/CUMM (4-12)
[2020-08-18 04:41] LABS: Calcium 8.2 MG/DL (8.5-10.1); Osmolality,Calculated 284.8 MOS/KG (273-304)
[2020-08-18] MEDS: ENALAPRIL 2.5 MG/2 ML VIAL IV PRN (05:02)
[2020-08-18] MEDS: HEPARIN 5,000 UNIT/1 ML VIAL SUBCUT SCH ×3 (06:08→22:00)
[2020-08-18] MEDS: carvediloL 12.5 MG TABLET PO SCH ×2 (09:48→22:01)
[2020-08-18] MEDS: metOLazone 5 MG TABLET PO SCH (09:48)
[2020-08-18] MEDS: ASPIRIN CHEW 81 MG TABLET PO SCH (09:48)
[2020-08-18] MEDS: TORSEMIDE 20 MG TABLET PO SCH (09:48)
[2020-08-18] MEDS: NON-FORMULARY MEDICATION (Ferric Citrate [Auryxia] 210 mg iron tablet) PO SCH ×3 (09:49→17:12)
[2020-08-18] MEDS: SODIUM HYPOCHLORITE 0.25% IRRIG 473 ML BOTTLE TOP SCH ×2 (09:49→22:00)
[2020-08-18] MEDS: NOREPINEPHRINE 8 MG in SODIUM CHLORIDE 0.9% 242 ML IV SCH (14:58)
[2020-08-18] MEDS: PANTOPRAZOLE 40 MG VIAL IV SCH (16:28)
[2020-08-18] MEDS: CALCIUM CARBONATE CHEW 500 MG TABLET PO PRN (21:59)
[2020-08-18] MEDS: ESCITALOPRAM 10 MG TABLET PO SCH (21:59)
[2020-08-18] MEDS: ROSUVASTATIN 20 MG TABLET PO SCH (22:00)
[2020-08-18] MEDS: DOCUSATE SODIUM 100 MG CAPSULE PO SCH (22:01)
[2020-08-19] MEDS: ALBUTEROL/IPRATROPIUM 3 ML NEB RESP TX SCH ×4 (01:00→19:54)
[2020-08-19] MEDS: CEFEPIME 1,000 MG in SODIUM CHLORIDE 0.9% 100 ML IV SCH (01:14)
[2020-08-19 04:27] LABS: ABG Base Excess -3.2 MMOL/L (-2.5-2.5); ABG HCO3 21.7 MMOL/L (20-26); ABG Oxygen Saturation 99.4 % (95-100); ABG PCO2 42.9 MM HG (35-48); ABG PH 7.329 (7.35-7.45); ABG TCO2 21.2 MMOL/L (23-27)
[2020-08-19 04:28] LABS: Allen Test Positive; Pt O2 Delivery Device Ventilator
[2020-08-19 05:06] LABS: Basophils # 0.1 10*3/uL (0.0-0.2); Basophils % 0.7 % (0.0-0.8); Eosinophils # 0.3 10*3/uL (0.0-0.87); Eosinophils % 3.2 % (0.00-10.9); Hematocrit 28.4 VOL% (42.0-52.0); Immature Granulocytes % 1.4 %; Immature Granulocytes Absolute 0.11 #; Lymphocytes # 0.9 10*3/uL (1.4-4.0); Lymphocytes % 11.2 % (21.2-54.2); Mean Corpuscular HGB Conc 28.5 GM/DL (32-36); Mean Corpuscular Volume 92.5 FL (87-102); Mean Platelet Volume 9.7 FL (9.6-12.0); Monocytes % 5.1 % (1.7-12.7); Neutrophils % 78.4 % (38.7-73.9); Platelet Count 178 T/CUMM (130-400); Red Blood Count 3.07 MC/CUMM (3.8-5.5); Red Cell Distribution Width 17.1 % (9.3-17.3); White Blood Count 8.1 T/CUMM (4-12)
[2020-08-19 05:11] LABS: Hemoglobin 8.1 GM/DL (14.0-18.0)
[2020-08-19 05:28] LABS: Calcium 8.1 MG/DL (8.5-10.1); Osmolality,Calculated 285.7 MOS/KG (273-304)
[2020-08-19] MEDS: INSULIN REGULAR 100 UNIT/ML SUBCUT SCH ×3 (05:40→18:11)
[2020-08-19 05:42] LABS: Anisocytosis 1+; Platelet Estimate Normal
[2020-08-19 05:43] LABS: Macrocytosis 1+
[2020-08-19] MEDS: NON-FORMULARY MEDICATION (Ferric Citrate [Auryxia] 210 mg iron tablet) PO SCH ×3 (09:13→18:02)
[2020-08-19] MEDS: HEPARIN 5,000 UNIT/1 ML VIAL SUBCUT SCH ×3 (09:23→22:38)
[2020-08-19] MEDS: metOLazone 5 MG TABLET PO SCH (09:24)
[2020-08-19] MEDS: carvediloL 12.5 MG TABLET PO SCH ×2 (09:24→22:38)
[2020-08-19] MEDS: TORSEMIDE 20 MG TABLET PO SCH (09:24)
[2020-08-19] MEDS: ASPIRIN CHEW 81 MG TABLET PO SCH (09:24)
[2020-08-19] MEDS: SODIUM HYPOCHLORITE 0.25% IRRIG 473 ML BOTTLE TOP SCH ×2 (09:27→22:38)
[2020-08-19] MEDS: BACITRACIN OINT 0.9 GM PACK TOP SCH (12:33)
[2020-08-19] MEDS: PANTOPRAZOLE 40 MG VIAL IV SCH (18:11)
[2020-08-19] MEDS: CALCIUM CARBONATE CHEW 500 MG TABLET PO PRN (22:37)
[2020-08-19] MEDS: DOCUSATE SODIUM 100 MG CAPSULE PO SCH (22:37)
[2020-08-19] MEDS: ESCITALOPRAM 10 MG TABLET PO SCH (22:37)
[2020-08-19] MEDS: ROSUVASTATIN 20 MG TABLET PO SCH (22:37)
[2020-08-20] MEDS: INSULIN REGULAR 100 UNIT/ML SUBCUT SCH ×4 (01:26→18:08)
[2020-08-20] MEDS: CEFEPIME 1,000 MG in SODIUM CHLORIDE 0.9% 100 ML IV SCH (01:26)
[2020-08-20] MEDS: ALBUTEROL/IPRATROPIUM 3 ML NEB RESP TX SCH ×4 (01:34→19:53)
[2020-08-20] MEDS: ENALAPRIL 2.5 MG/2 ML VIAL IV PRN (01:38)
[2020-08-20 02:28] LABS: ABG Base Excess -1.9 MMOL/L (-2.5-2.5); ABG HCO3 22.8 MMOL/L (20-26); ABG Oxygen Saturation 99.2 % (95-100); ABG PCO2 45.6 MM HG (35-48); ABG PH 7.329 (7.35-7.45); ABG TCO2 22.5 MMOL/L (23-27); Allen Test Positive; Pt O2 Delivery Device Ventilator
[2020-08-20] MEDS: MORPHINE 4 MG/1 ML VIAL IV PRN ×3 (02:42→18:29)
[2020-08-20 05:01] LABS: Basophils # 0.1 10*3/uL (0.0-0.2); Basophils % 0.6 % (0.0-0.8); Eosinophils # 0.3 10*3/uL (0.0-0.87); Eosinophils % 3.8 % (0.00-10.9); Hematocrit 27.9 VOL% (42.0-52.0); Immature Granulocytes % 1.2 %; Lymphocytes # 0.8 10*3/uL (1.4-4.0); Lymphocytes % 9.4 % (21.2-54.2); Mean Corpuscular Volume 93.6 FL (87-102); Mean Platelet Volume 9.3 FL (9.6-12.0); Monocytes % 5.5 % (1.7-12.7); Neutrophils % 79.5 % (38.7-73.9); Platelet Count 185 T/CUMM (130-400); Red Blood Count 2.98 MC/CUMM (3.8-5.5); Red Cell Distribution Width 17.1 % (9.3-17.3); White Blood Count 8.2 T/CUMM (4-12)
[2020-08-20 05:31] LABS: Calcium 8.5 MG/DL (8.5-10.1); Osmolality,Calculated 300.3 MOS/KG (273-304)
[2020-08-20 05:38] LABS: Hypochromasia 2+; Microcytosis 1+; Ovalocytes Slight; Platelet Estimate Adequate
[2020-08-20] MEDS: HEPARIN 5,000 UNIT/1 ML VIAL SUBCUT SCH ×2 (07:33→18:07)
[2020-08-20] MEDS: NON-FORMULARY MEDICATION (Ferric Citrate [Auryxia] 210 mg iron tablet) PO SCH ×3 (09:57→18:08)
[2020-08-20] MEDS: ASPIRIN CHEW 81 MG TABLET PO SCH (09:58)
[2020-08-20] MEDS: TORSEMIDE 20 MG TABLET PO SCH (09:58)
[2020-08-20] MEDS: metOLazone 5 MG TABLET PO SCH (09:58)
[2020-08-20] MEDS: carvediloL 12.5 MG TABLET PO SCH ×2 (09:59→20:46)
[2020-08-20] MEDS: BACITRACIN OINT 0.9 GM PACK TOP SCH (09:59)
[2020-08-20] MEDS ORDERED: VANCOMYCIN INJ 1,250 MG in SODIUM CHLORIDE 0.9% 250 ML IV PRN (14:08)
[2020-08-20] MEDS ORDERED: VANCOMYCIN INJ 2,500 MG in SODIUM CHLORIDE 0.9% 500 ML IV ONE (15:00)
[2020-08-20] MEDS: PANTOPRAZOLE 40 MG VIAL IV SCH (18:07)
[2020-08-20] MEDS: SODIUM HYPOCHLORITE 0.25% IRRIG 473 ML BOTTLE TOP SCH ×2 (18:09→20:47)
[2020-08-20] MEDS: ROSUVASTATIN 20 MG TABLET PO SCH (20:33)
[2020-08-20] MEDS: CALCIUM ACETATE 667 MG CAPSULE PER TUBE SCH (20:33)
[2020-08-20] MEDS: DOCUSATE SODIUM 100 MG CAPSULE PO SCH (20:33)
[2020-08-20] MEDS: ESCITALOPRAM 10 MG TABLET PO SCH (20:33)
[2020-08-21] MEDS: HEPARIN 5,000 UNIT/1 ML VIAL SUBCUT SCH ×3 (00:22→15:06)
[2020-08-21] MEDS: CEFEPIME 1,000 MG in SODIUM CHLORIDE 0.9% 100 ML IV SCH (00:22)
[2020-08-21] MEDS: INSULIN REGULAR 100 UNIT/ML SUBCUT SCH ×4 (00:22→18:20)
[2020-08-21] MEDS: ALBUTEROL/IPRATROPIUM 3 ML NEB RESP TX SCH ×4 (01:22→19:58)
[2020-08-21] MEDS: MORPHINE 4 MG/1 ML VIAL IV PRN ×2 (03:09→09:21)
[2020-08-21 04:44] LABS: ABG Base Excess 1.4 MMOL/L (-2.5-2.5); ABG HCO3 26.8 MMOL/L (20-26); ABG Oxygen Saturation 98.6 % (95-100); ABG PCO2 46.4 MM HG (35-48); ABG PO2 131.3 MM HG (80-95); ABG TCO2 28.3 MMOL/L (23-27); Allen Test Positive; Pt O2 Delivery Device Ventilator
[2020-08-21 05:12] LABS: Basophils # 0.1 10*3/uL (0.0-0.2); Basophils % 0.6 % (0.0-0.8); Eosinophils # 0.5 10*3/uL (0.0-0.87); Eosinophils % 5.5 % (0.00-10.9); Hematocrit 28.8 VOL% (42.0-52.0); Hemoglobin 8.5 GM/DL (14.0-18.0); Immature Granulocytes % 1.7 %; Immature Granulocytes Absolute 0.16 #; Lymphocytes # 0.8 10*3/uL (1.4-4.0); Lymphocytes % 8.4 % (21.2-54.2); Mean Corpuscular HGB Conc 29.5 GM/DL (32-36); Mean Corpuscular Volume 92.9 FL (87-102); Mean Platelet Volume 9.6 FL (9.6-12.0); Monocytes % 5.1 % (1.7-12.7); Neutrophils % 78.7 % (38.7-73.9); Platelet Count 187 T/CUMM (130-400); Red Cell Distribution Width 16.9 % (9.3-17.3); White Blood Count 9.3 T/CUMM (4-12)
[2020-08-21 05:32] LABS: Calcium 8.6 MG/DL (8.5-10.1); Osmolality,Calculated 295.4 MOS/KG (273-304)
[2020-08-21] MEDS: ASPIRIN CHEW 81 MG TABLET PO SCH (09:19)
[2020-08-21] MEDS: carvediloL 12.5 MG TABLET PO SCH ×2 (09:20→20:09)
[2020-08-21] MEDS: metOLazone 5 MG TABLET PO SCH (09:20)
[2020-08-21] MEDS: CALCIUM ACETATE 667 MG CAPSULE PER TUBE SCH ×3 (09:20→20:09)
[2020-08-21] MEDS: NON-FORMULARY MEDICATION (Ferric Citrate [Auryxia] 210 mg iron tablet) PO SCH ×3 (09:21→16:46)
[2020-08-21] MEDS: SODIUM HYPOCHLORITE 0.25% IRRIG 473 ML BOTTLE TOP SCH ×2 (09:22→20:10)
[2020-08-21] MEDS: BACITRACIN OINT 0.9 GM PACK TOP SCH (09:22)
[2020-08-21] MEDS: TORSEMIDE 20 MG TABLET PO SCH (13:38)
[2020-08-21] MEDS: PANTOPRAZOLE 40 MG VIAL IV SCH (15:17)
[2020-08-21] MEDS ORDERED: VANCOMYCIN INJ 1,250 MG in SODIUM CHLORIDE 0.9% 250 ML IV ONE (17:00)
[2020-08-21] MEDS: ENALAPRIL 2.5 MG/2 ML VIAL IV PRN (18:21)
[2020-08-21] MEDS: ESCITALOPRAM 10 MG TABLET PO SCH (20:09)
[2020-08-21] MEDS: INSULIN GLARGINE 100 UNIT/ML SUBCUT SCH (20:09)
[2020-08-21] MEDS: ROSUVASTATIN 20 MG TABLET PO SCH (20:09)
[2020-08-21] MEDS: DOCUSATE SODIUM 100 MG CAPSULE PO SCH (20:09)
[2020-08-22] MEDS: ALBUTEROL/IPRATROPIUM 3 ML NEB RESP TX SCH ×4 (00:41→19:33)
[2020-08-22] MEDS: CEFEPIME 1,000 MG in SODIUM CHLORIDE 0.9% 100 ML IV SCH (00:48)
[2020-08-22] MEDS: HEPARIN 5,000 UNIT/1 ML VIAL SUBCUT SCH ×3 (00:48→14:01)
[2020-08-22] MEDS: ENALAPRIL 2.5 MG/2 ML VIAL IV PRN (00:49)
[2020-08-22] MEDS: INSULIN REGULAR 100 UNIT/ML SUBCUT SCH ×4 (00:51→17:58)
[2020-08-22 04:29] LABS: ABG Base Excess 1.8 MMOL/L (-2.5-2.5); ABG HCO3 27.4 MMOL/L (20-26); ABG Oxygen Saturation 98.7 % (95-100); ABG PCO2 47.7 MM HG (35-48); ABG PH 7.377 (7.35-7.45); ABG PO2 138.6 MM HG (80-95); ABG TCO2 28.9 MMOL/L (23-27); Allen Test Positive; Pt O2 Delivery Device Ventilator
[2020-08-22 05:06] LABS: Basophils # 0.1 10*3/uL (0.0-0.2); Basophils % 0.7 % (0.0-0.8); Eosinophils # 0.7 10*3/uL (0.0-0.87); Eosinophils % 6.9 % (0.00-10.9); Hematocrit 29.5 VOL% (42.0-52.0); Hemoglobin 8.5 GM/DL (14.0-18.0); Immature Granulocytes % 2.2 %; Immature Granulocytes Absolute 0.23 #; Lymphocytes # 1.2 10*3/uL (1.4-4.0); Lymphocytes % 10.9 % (21.2-54.2); Mean Corpuscular HGB Conc 28.8 GM/DL (32-36); Mean Corpuscular Volume 93.7 FL (87-102); Monocytes % 4.7 % (1.7-12.7); Neutrophils % 74.6 % (38.7-73.9); Platelet Count 207 T/CUMM (130-400); Red Blood Count 3.15 MC/CUMM (3.8-5.5); Red Cell Distribution Width 16.9 % (9.3-17.3); White Blood Count 10.7 T/CUMM (4-12)
[2020-08-22 05:39] LABS: Calcium 8.7 MG/DL (8.5-10.1); Osmolality,Calculated 306.1 MOS/KG (273-304)
[2020-08-22] MEDS: MORPHINE 4 MG/1 ML VIAL IV PRN (08:00)
[2020-08-22] MEDS: ASPIRIN CHEW 81 MG TABLET PO SCH (08:19)
[2020-08-22] MEDS: BACITRACIN OINT 0.9 GM PACK TOP SCH (08:19)
[2020-08-22] MEDS: NON-FORMULARY MEDICATION (Ferric Citrate [Auryxia] 210 mg iron tablet) PO SCH ×3 (08:19→16:53)
[2020-08-22] MEDS: CALCIUM ACETATE 667 MG CAPSULE PER TUBE SCH ×3 (08:20→20:42)
[2020-08-22] MEDS: TORSEMIDE 20 MG TABLET PO SCH (08:20)
[2020-08-22] MEDS: SODIUM HYPOCHLORITE 0.25% IRRIG 473 ML BOTTLE TOP SCH ×2 (08:20→20:43)
[2020-08-22] MEDS: INSULIN GLARGINE 100 UNIT/ML SUBCUT SCH ×2 (08:20→20:42)
[2020-08-22] MEDS: metOLazone 5 MG TABLET PO SCH (08:20)
[2020-08-22] MEDS: carvediloL 12.5 MG TABLET PO SCH ×2 (08:20→20:42)
[2020-08-22] MEDS ORDERED: POTASSIUM CHLORIDE 20 MEQ/15 ML UDCUP NG ONE (09:31)
[2020-08-22] MEDS: FLUCONAZOLE INJ 100 MG in IV BAG 1 EACH IV SCH (11:51)
[2020-08-22] MEDS: PANTOPRAZOLE 40 MG VIAL IV SCH (14:02)
[2020-08-22] MEDS: ROSUVASTATIN 20 MG TABLET PO SCH (20:42)
[2020-08-22] MEDS: ESCITALOPRAM 10 MG TABLET PO SCH (20:43)
[2020-08-22] MEDS: DOCUSATE SODIUM 100 MG CAPSULE PO SCH (20:43)
[2020-08-23] MEDS: ALBUTEROL/IPRATROPIUM 3 ML NEB RESP TX SCH ×4 (00:02→19:41)
[2020-08-23] MEDS: INSULIN REGULAR 100 UNIT/ML SUBCUT SCH ×6 (00:07→23:48)
[2020-08-23] MEDS: CEFEPIME 1,000 MG in SODIUM CHLORIDE 0.9% 100 ML IV SCH (00:08)
[2020-08-23] MEDS: HEPARIN 5,000 UNIT/1 ML VIAL SUBCUT SCH ×4 (00:08→23:48)
[2020-08-23 04:33] LABS: ABG Base Excess 2.6 MMOL/L (-2.5-2.5); ABG HCO3 26.7 MMOL/L (20-26); ABG PH 7.372 (7.35-7.45); ABG TCO2 26.2 MMOL/L (23-27); Allen Test Positive; Pt O2 Delivery Device Ventilator
[2020-08-23 04:55] LABS: Calcium 9.2 MG/DL (8.5-10.1)
[2020-08-23 05:11] LABS: Basophils # 0.1 10*3/uL (0.0-0.2); Basophils % 0.7 % (0.0-0.8); Eosinophils # 0.9 10*3/uL (0.0-0.87); Eosinophils % 7.6 % (0.00-10.9); Hematocrit 29.9 VOL% (42.0-52.0); Hemoglobin 8.5 GM/DL (14.0-18.0); Immature Granulocytes % 3.7 %; Immature Granulocytes Absolute 0.45 #; Lymphocytes # 1.3 10*3/uL (1.4-4.0); Lymphocytes % 10.8 % (21.2-54.2); Mean Corpuscular HGB Conc 28.4 GM/DL (32-36); Mean Corpuscular Volume 95.5 FL (87-102); Mean Platelet Volume 9.9 FL (9.6-12.0); Monocytes % 5.4 % (1.7-12.7); Neutrophils % 71.8 % (38.7-73.9); Platelet Count 215 T/CUMM (130-400); Red Blood Count 3.13 MC/CUMM (3.8-5.5); Red Cell Distribution Width 17.1 % (9.3-17.3)
[2020-08-23 05:15] LABS: Hypochromasia 2+; Microcytosis Slight; Platelet Estimate Adequate
[2020-08-23] MEDS: metOLazone 5 MG TABLET PO SCH (08:30)
[2020-08-23] MEDS: ASPIRIN CHEW 81 MG TABLET PO SCH (08:30)
[2020-08-23] MEDS: CALCIUM ACETATE 667 MG CAPSULE PER TUBE SCH ×3 (08:30→20:58)
[2020-08-23] MEDS: NON-FORMULARY MEDICATION (Ferric Citrate [Auryxia] 210 mg iron tablet) PO SCH ×3 (08:30→16:23)
[2020-08-23] MEDS: TORSEMIDE 20 MG TABLET PO SCH (08:31)
[2020-08-23] MEDS: BACITRACIN OINT 0.9 GM PACK TOP SCH (08:31)
[2020-08-23] MEDS: SODIUM HYPOCHLORITE 0.25% IRRIG 473 ML BOTTLE TOP SCH ×2 (08:31→21:01)
[2020-08-23] MEDS: carvediloL 12.5 MG TABLET PO SCH ×2 (08:31→20:58)
[2020-08-23] MEDS: INSULIN GLARGINE 100 UNIT/ML SUBCUT SCH ×2 (08:32→21:00)
[2020-08-23] MEDS: ZINC OXIDE PASTE 113 GM TUBE TOP SCH (08:32)
[2020-08-23] MEDS: FLUCONAZOLE INJ 100 MG in IV BAG 1 EACH IV SCH (11:09)
[2020-08-23] MEDS ORDERED: VANCOMYCIN INJ 1,250 MG in SODIUM CHLORIDE 0.9% 250 ML IV ONE (13:00)
[2020-08-23] MEDS: ENALAPRIL 2.5 MG/2 ML VIAL IV PRN (13:11)
[2020-08-23] MEDS: PANTOPRAZOLE 40 MG VIAL IV SCH (14:08)
[2020-08-23] MEDS: ROSUVASTATIN 20 MG TABLET PO SCH (20:58)
[2020-08-23] MEDS: ESCITALOPRAM 10 MG TABLET PO SCH (20:59)
[2020-08-23] MEDS: DOCUSATE SODIUM 100 MG CAPSULE PO SCH (21:00)
[2020-08-24] MEDS: ALBUTEROL/IPRATROPIUM 3 ML NEB RESP TX SCH ×4 (00:09→19:21)
[2020-08-24] MEDS: CEFEPIME 1,000 MG in SODIUM CHLORIDE 0.9% 100 ML IV SCH (01:05)
[2020-08-24] MEDS: MORPHINE 4 MG/1 ML VIAL IV PRN (02:41)
[2020-08-24 03:12] LABS: ABG Base Excess 4.3 MMOL/L (-2.5-2.5); ABG HCO3 28.3 MMOL/L (20-26); ABG Oxygen Saturation 97.3 % (95-100); ABG PCO2 45.3 MM HG (35-48); ABG PO2 83.8 MM HG (80-95); ABG TCO2 27.1 MMOL/L (23-27); Allen Test Positive; Pt O2 Delivery Device Ventilator
[2020-08-24 04:59] LABS: Basophils # 0.1 10*3/uL (0.0-0.2); Basophils % 0.7 % (0.0-0.8); Eosinophils # 0.7 10*3/uL (0.0-0.87); Eosinophils % 5.5 % (0.00-10.9); Immature Granulocytes % 4.5 %; Immature Granulocytes Absolute 0.61 #; Lymphocytes # 1.5 10*3/uL (1.4-4.0); Lymphocytes % 10.8 % (21.2-54.2); Mean Corpuscular HGB Conc 28.3 GM/DL (32-36); Mean Corpuscular Volume 94.6 FL (87-102); Mean Platelet Volume 9.9 FL (9.6-12.0); Monocytes % 5.2 % (1.7-12.7); Neutrophils % 73.3 % (38.7-73.9); Platelet Count 227 T/CUMM (130-400); Red Blood Count 3.17 MC/CUMM (3.8-5.5); Red Cell Distribution Width 16.7 % (9.3-17.3); White Blood Count 13.5 T/CUMM (4-12)
[2020-08-24 05:26] LABS: Hemoglobin 8.5 GM/DL (14.0-18.0)
[2020-08-24 05:29] LABS: Eosinophils 4 % (0-10); Hypochromasia 1+; Lymphocytes 7 % (20-55); Microcytosis 1+; Platelet Estimate Adequate; Segmented Neutrophils 82 % (50-85); Total Cells Counted 100
[2020-08-24 05:35] LABS: Calcium 9.1 MG/DL (8.5-10.1); Osmolality,Calculated 299.4 MOS/KG (273-304)
[2020-08-24] MEDS: INSULIN REGULAR 100 UNIT/ML SUBCUT SCH ×3 (05:58→17:31)
[2020-08-24] MEDS: HEPARIN 5,000 UNIT/1 ML VIAL SUBCUT SCH ×2 (06:01→14:01)
[2020-08-24] MEDS ORDERED: MIDAZOLAM 2 MG/2 ML VIAL ONE (07:27)
[2020-08-24] MEDS ORDERED: MIDAZOLAM 2 MG/2 ML VIAL IV ONE (07:32)
[2020-08-24] MEDS: INSULIN GLARGINE 100 UNIT/ML SUBCUT SCH ×3 (08:21→21:45)
[2020-08-24] MEDS: CALCIUM ACETATE 667 MG CAPSULE PER TUBE SCH ×3 (08:21→21:44)
[2020-08-24] MEDS: TORSEMIDE 20 MG TABLET PO SCH (08:21)
[2020-08-24] MEDS: NON-FORMULARY MEDICATION (Ferric Citrate [Auryxia] 210 mg iron tablet) PO SCH ×3 (08:22→17:31)
[2020-08-24] MEDS: carvediloL 12.5 MG TABLET PO SCH ×2 (08:22→21:44)
[2020-08-24] MEDS: SODIUM HYPOCHLORITE 0.25% IRRIG 473 ML BOTTLE TOP SCH ×2 (08:22→21:45)
[2020-08-24] MEDS: ZINC OXIDE PASTE 113 GM TUBE TOP SCH (08:22)
[2020-08-24] MEDS: metOLazone 5 MG TABLET PO SCH (08:22)
[2020-08-24] MEDS: BACITRACIN OINT 0.9 GM PACK TOP SCH (08:22)
[2020-08-24] MEDS: ASPIRIN CHEW 81 MG TABLET PO SCH (08:22)
[2020-08-24] MEDS: FLUCONAZOLE INJ 100 MG in IV BAG 1 EACH IV SCH (12:09)
[2020-08-24] MEDS: PANTOPRAZOLE 40 MG VIAL IV SCH (14:01)
[2020-08-24] MEDS: ESCITALOPRAM 10 MG TABLET PO SCH (21:44)
[2020-08-24] MEDS: ROSUVASTATIN 20 MG TABLET PO SCH (21:44)
[2020-08-24] MEDS: DOCUSATE SODIUM 100 MG CAPSULE PO SCH (21:44)
[2020-08-25] MEDS: INSULIN REGULAR 100 UNIT/ML SUBCUT SCH ×5 (00:04→23:50)
[2020-08-25] MEDS: CEFEPIME 1,000 MG in SODIUM CHLORIDE 0.9% 100 ML IV SCH (00:05)
[2020-08-25] MEDS: HEPARIN 5,000 UNIT/1 ML VIAL SUBCUT SCH ×4 (00:05→23:42)
[2020-08-25] MEDS: ALBUTEROL/IPRATROPIUM 3 ML NEB RESP TX SCH ×4 (01:31→20:03)
[2020-08-25 03:55] LABS: ABG HCO3 28.6 MMOL/L (20-26); ABG Oxygen Saturation 96.1 % (95-100); ABG PCO2 43.5 MM HG (35-48); ABG PH 7.436 (7.35-7.45); ABG PO2 80.7 MM HG (80-95); Allen Test Positive; Pt O2 Delivery Device Ventilator
[2020-08-25] MEDS: ENALAPRIL 2.5 MG/2 ML VIAL IV PRN (04:02)
[2020-08-25 04:57] LABS: Basophils # 0.1 10*3/uL (0.0-0.2); Basophils % 0.8 % (0.0-0.8); Eosinophils # 0.9 10*3/uL (0.0-0.87); Eosinophils % 6.5 % (0.00-10.9); Hematocrit 31.5 VOL% (42.0-52.0); Immature Granulocytes % 4.4 %; Immature Granulocytes Absolute 0.62 #; Lymphocytes # 1.6 10*3/uL (1.4-4.0); Lymphocytes % 11.1 % (21.2-54.2); Mean Corpuscular HGB Conc 29.5 GM/DL (32-36); Mean Corpuscular Volume 91.8 FL (87-102); Mean Platelet Volume 10.3 FL (9.6-12.0); Monocytes % 5.4 % (1.7-12.7); Neutrophils % 71.8 % (38.7-73.9); Platelet Count 247 T/CUMM (130-400); Red Blood Count 3.43 MC/CUMM (3.8-5.5); Red Cell Distribution Width 16.8 % (9.3-17.3); White Blood Count 14.1 T/CUMM (4-12)
[2020-08-25 04:58] LABS: Hemoglobin 9.3 GM/DL (14.0-18.0)
[2020-08-25 05:02] LABS: Osmolality,Calculated 291.5 MOS/KG (273-304)
[2020-08-25 05:15] LABS: Eosinophils 9 % (0-10); Hypochromasia 1+; Lymphocytes 9 % (20-55); Microcytosis Slight; Ovalocytes Slight; Platelet Estimate Adequate; Segmented Neutrophils 79 % (50-85); Total Cells Counted 100
[2020-08-25] MEDS: INSULIN GLARGINE 100 UNIT/ML SUBCUT SCH ×3 (08:15→20:46)
[2020-08-25] MEDS: cloNIDine 0.3 MG/24 HR PATCH TRANSDERM SCH (08:15)
[2020-08-25] MEDS: CALCIUM ACETATE 667 MG CAPSULE PER TUBE SCH ×3 (08:18→20:49)
[2020-08-25] MEDS: ASPIRIN CHEW 81 MG TABLET PO SCH (08:18)
[2020-08-25] MEDS: metOLazone 5 MG TABLET PO SCH (08:19)
[2020-08-25] MEDS: NON-FORMULARY MEDICATION (Ferric Citrate [Auryxia] 210 mg iron tablet) PO SCH ×3 (08:20→16:15)
[2020-08-25] MEDS: carvediloL 12.5 MG TABLET PO SCH ×2 (08:20→20:46)
[2020-08-25] MEDS: SODIUM HYPOCHLORITE 0.25% IRRIG 473 ML BOTTLE TOP SCH (08:21)
[2020-08-25] MEDS: ZINC OXIDE PASTE 113 GM TUBE TOP SCH (08:21)
[2020-08-25] MEDS: BACITRACIN OINT 0.9 GM PACK TOP SCH (08:21)
[2020-08-25] MEDS: TORSEMIDE 20 MG TABLET PO SCH (08:25)
[2020-08-25] MEDS: FLUCONAZOLE INJ 100 MG in IV BAG 1 EACH IV SCH (11:52)
[2020-08-25] MEDS: PANTOPRAZOLE 40 MG VIAL IV SCH (16:15)
[2020-08-25] MEDS ORDERED: VANCOMYCIN INJ 1,250 MG in SODIUM CHLORIDE 0.9% 250 ML IV ONE (17:00)
[2020-08-25] MEDS: ESCITALOPRAM 10 MG TABLET PO SCH (20:46)
[2020-08-25] MEDS: ROSUVASTATIN 20 MG TABLET PO SCH (20:46)
[2020-08-25] MEDS: DOCUSATE SODIUM 100 MG CAPSULE PO SCH (20:46)
[2020-08-25] MEDS: MORPHINE 4 MG/1 ML VIAL IV PRN (23:43)
[2020-08-26] MEDS: ALBUTEROL/IPRATROPIUM 3 ML NEB RESP TX SCH ×4 (01:23→20:38)
[2020-08-26] MEDS: CEFEPIME 1,000 MG in SODIUM CHLORIDE 0.9% 100 ML IV SCH (01:40)
[2020-08-26] MEDS: SODIUM HYPOCHLORITE 0.25% IRRIG 473 ML BOTTLE TOP SCH ×3 (02:36→21:23)
[2020-08-26 03:39] LABS: Calcium 8.7 MG/DL (8.5-10.1); Osmolality,Calculated 302.3 MOS/KG (273-304)
[2020-08-26 03:40] LABS: Basophils # 0.1 10*3/uL (0.0-0.2); Basophils % 0.5 % (0.0-0.8); Eosinophils % 7.5 % (0.00-10.9); Hematocrit 29.2 VOL% (42.0-52.0); Hemoglobin 8.4 GM/DL (14.0-18.0); Immature Granulocytes % 4.2 %; Immature Granulocytes Absolute 0.54 #; Lymphocytes # 1.7 10*3/uL (1.4-4.0); Mean Corpuscular HGB Conc 28.8 GM/DL (32-36); Mean Corpuscular Volume 94.2 FL (87-102); Mean Platelet Volume 10.1 FL (9.6-12.0); Monocytes % 6.6 % (1.7-12.7); Neutrophils % 68.2 % (38.7-73.9); Platelet Count 233 T/CUMM (130-400); White Blood Count 12.9 T/CUMM (4-12)
[2020-08-26 04:13] LABS: Eosinophils 7 % (0-10); Lymphocytes 15 % (20-55); Segmented Neutrophils 69 % (50-85); Total Cells Counted 100
[2020-08-26 04:14] LABS: Hypochromasia 1+; Microcytosis 1+; Platelet Estimate Adequate
[2020-08-26 04:50] LABS: ABG Base Excess 4.9 MMOL/L (-2.5-2.5); ABG HCO3 29.7 MMOL/L (20-26); ABG Oxygen Saturation 95.9 % (95-100); ABG PCO2 44.9 MM HG (35-48); ABG PH 7.438 (7.35-7.45); ABG PO2 80.4 MM HG (80-95); ABG TCO2 31.1 MMOL/L (23-27); Allen Test Positive; Pt O2 Delivery Device Ventilator
[2020-08-26] MEDS: INSULIN REGULAR 100 UNIT/ML SUBCUT SCH ×3 (06:10→18:59)
[2020-08-26] MEDS: HEPARIN 5,000 UNIT/1 ML VIAL SUBCUT SCH ×2 (06:10→16:32)
[2020-08-26] MEDS: INSULIN GLARGINE 100 UNIT/ML SUBCUT SCH ×2 (08:22→21:19)
[2020-08-26] MEDS: NON-FORMULARY MEDICATION (Ferric Citrate [Auryxia] 210 mg iron tablet) PO SCH ×3 (08:22→16:32)
[2020-08-26] MEDS: TORSEMIDE 20 MG TABLET PO SCH (08:22)
[2020-08-26] MEDS: carvediloL 12.5 MG TABLET PO SCH ×2 (08:23→21:20)
[2020-08-26] MEDS: ZINC OXIDE PASTE 113 GM TUBE TOP SCH (08:23)
[2020-08-26] MEDS: ASPIRIN CHEW 81 MG TABLET PO SCH (08:23)
[2020-08-26] MEDS: CALCIUM ACETATE 667 MG CAPSULE PER TUBE SCH ×3 (08:23→21:20)
[2020-08-26] MEDS: metOLazone 5 MG TABLET PO SCH (08:23)
[2020-08-26] MEDS: BACITRACIN OINT 0.9 GM PACK TOP SCH (08:24)
[2020-08-26] MEDS: FLUCONAZOLE INJ 100 MG in IV BAG 1 EACH IV SCH (11:33)
[2020-08-26] MEDS ORDERED: LORazepam 2 MG/1 ML VIAL ONE (14:19)
[2020-08-26] MEDS ORDERED: LORazepam 2 MG/1 ML VIAL IV ONE (14:21)
[2020-08-26] MEDS ORDERED: LORazepam 2 MG/1 ML VIAL IV PRN ×2 (14:32→14:35)
[2020-08-26] MEDS: PANTOPRAZOLE 40 MG VIAL IV SCH (16:32)
[2020-08-26] MEDS ORDERED: VANCOMYCIN INJ 1,250 MG in SODIUM CHLORIDE 0.9% 250 ML IV ONE (17:00)
[2020-08-26] MEDS: DOCUSATE SODIUM 100 MG CAPSULE PO SCH (21:20)
[2020-08-26] MEDS: ESCITALOPRAM 10 MG TABLET PO SCH (21:20)
[2020-08-26] MEDS: ROSUVASTATIN 20 MG TABLET PO SCH (21:20)
[2020-08-27] MEDS: CEFEPIME 1,000 MG in SODIUM CHLORIDE 0.9% 100 ML IV SCH (00:08)
[2020-08-27] MEDS: HEPARIN 5,000 UNIT/1 ML VIAL SUBCUT SCH ×4 (00:08→23:12)
[2020-08-27] MEDS: INSULIN REGULAR 100 UNIT/ML SUBCUT SCH ×4 (00:26→17:49)
[2020-08-27] MEDS: ALBUTEROL/IPRATROPIUM 3 ML NEB RESP TX SCH ×4 (02:08→18:47)
[2020-08-27 04:43] LABS: Basophils # 0.1 10*3/uL (0.0-0.2); Basophils % 0.6 % (0.0-0.8); Hematocrit 32.4 VOL% (42.0-52.0); Mean Platelet Volume 10.5 FL (9.6-12.0); Monocytes % 6.5 % (1.7-12.7)
[2020-08-27 04:45] LABS: Allen Test Positive; Pt O2 Delivery Device Ventilator
[2020-08-27 04:46] LABS: ABG Base Excess 3.7 MMOL/L (-2.5-2.5); ABG HCO3 28.1 MMOL/L (20-26); ABG Oxygen Saturation 98.8 % (95-100); ABG PCO2 42.2 MM HG (35-48); ABG PH 7.442 (7.35-7.45); ABG PO2 133.9 MM HG (80-95); ABG TCO2 29.4 MMOL/L (23-27)
[2020-08-27 05:04] LABS: Eosinophils # 0.6 10*3/uL (0.0-0.87); Eosinophils % 3.8 % (0.00-10.9); Immature Granulocytes % 3.9 %; Immature Granulocytes Absolute 0.61 #; Lymphocytes # 1.9 10*3/uL (1.4-4.0); Lymphocytes % 11.8 % (21.2-54.2); Mean Corpuscular HGB Conc 28.7 GM/DL (32-36); Mean Corpuscular Volume 94.5 FL (87-102); Neutrophils % 73.4 % (38.7-73.9); Platelet Count 272 T/CUMM (130-400); Red Blood Count 3.43 MC/CUMM (3.8-5.5); Red Cell Distribution Width 16.8 % (9.3-17.3); White Blood Count 15.7 T/CUMM (4-12)
[2020-08-27 05:06] LABS: Hemoglobin 9.3 GM/DL (14.0-18.0)
[2020-08-27 05:09] LABS: Eosinophils 4 % (0-10); Hypochromasia 1+; Lymphocytes 12 % (20-55); Microcytosis Slight; Platelet Estimate Adequate; Segmented Neutrophils 78 % (50-85); Total Cells Counted 100
[2020-08-27 05:19] LABS: Calcium 9.3 MG/DL (8.5-10.1); Osmolality,Calculated 293.7 MOS/KG (273-304)
[2020-08-27] MEDS: NON-FORMULARY MEDICATION (Ferric Citrate [Auryxia] 210 mg iron tablet) PO SCH ×3 (08:23→16:26)
[2020-08-27] MEDS: ACETAMINOPHEN 325 MG TABLET PO PRN (08:25)
[2020-08-27] MEDS: metOLazone 5 MG TABLET PO SCH (08:25)
[2020-08-27] MEDS: CALCIUM ACETATE 667 MG CAPSULE PER TUBE SCH ×3 (08:25→21:50)
[2020-08-27] MEDS: BACITRACIN OINT 0.9 GM PACK TOP SCH (08:25)
[2020-08-27] MEDS: ASPIRIN CHEW 81 MG TABLET PO SCH (08:25)
[2020-08-27] MEDS: carvediloL 12.5 MG TABLET PO SCH ×2 (08:25→21:50)
[2020-08-27] MEDS: TORSEMIDE 20 MG TABLET PO SCH (08:26)
[2020-08-27] MEDS: ZINC OXIDE PASTE 113 GM TUBE TOP SCH (08:26)
[2020-08-27] MEDS: SODIUM HYPOCHLORITE 0.25% IRRIG 473 ML BOTTLE TOP SCH ×2 (08:26→21:50)
[2020-08-27] MEDS: INSULIN GLARGINE 100 UNIT/ML SUBCUT SCH ×2 (09:07→21:49)
[2020-08-27] MEDS ORDERED: ETOMIDATE 20 MG/10 ML VIAL IV ONE (10:47)
[2020-08-27] MEDS ORDERED: SUCCINYLCHOLINE 200 MG/10 ML VIAL ONE (10:47)
[2020-08-27] MEDS: FLUCONAZOLE INJ 100 MG in IV BAG 1 EACH IV SCH (12:07)
[2020-08-27] MEDS: PANTOPRAZOLE 40 MG VIAL IV SCH (16:25)
[2020-08-27] MEDS: ESCITALOPRAM 10 MG TABLET PO SCH (21:50)
[2020-08-27] MEDS: DOCUSATE SODIUM 100 MG CAPSULE PO SCH (21:50)
[2020-08-27] MEDS: ROSUVASTATIN 20 MG TABLET PO SCH (21:50)
[2020-08-28] MEDS ORDERED: SKIN HEALING OINT (AQUAPHOR) 50 GM TUBE TOP PRN (00:12)
[2020-08-28] MEDS: INSULIN REGULAR 100 UNIT/ML SUBCUT SCH ×4 (00:59→18:15)
[2020-08-28] MEDS: CEFEPIME 1,000 MG in SODIUM CHLORIDE 0.9% 100 ML IV SCH (01:00)
[2020-08-28] MEDS: ALBUTEROL/IPRATROPIUM 3 ML NEB RESP TX SCH ×4 (01:27→19:43)
[2020-08-28 03:37] LABS: ABG Base Excess 4.5 MMOL/L (-2.5-2.5); ABG HCO3 28.5 MMOL/L (20-26); ABG Oxygen Saturation 96.7 % (95-100); ABG PCO2 50.8 MM HG (35-48); ABG PH 7.386 (7.35-7.45); ABG PO2 79.9 MM HG (80-95); Allen Test Positive
[2020-08-28 05:19] LABS: Calcium 9.4 MG/DL (8.5-10.1); Osmolality,Calculated 303.5 MOS/KG (273-304)
[2020-08-28 05:35] LABS: Basophils # 0.1 10*3/uL (0.0-0.2); Basophils % 0.7 % (0.0-0.8); Eosinophils # 0.9 10*3/uL (0.0-0.87); Eosinophils % 5.8 % (0.00-10.9); Hematocrit 31.8 VOL% (42.0-52.0); Immature Granulocytes % 3.7 %; Immature Granulocytes Absolute 0.56 #; Lymphocytes # 1.8 10*3/uL (1.4-4.0); Mean Corpuscular HGB Conc 28.3 GM/DL (32-36); Mean Corpuscular Volume 94.4 FL (87-102); Mean Platelet Volume 10.7 FL (9.6-12.0); Monocytes % 5.9 % (1.7-12.7); Neutrophils % 71.9 % (38.7-73.9); Platelet Count 231 T/CUMM (130-400); Red Blood Count 3.37 MC/CUMM (3.8-5.5); Red Cell Distribution Width 16.9 % (9.3-17.3); White Blood Count 15.1 T/CUMM (4-12)
[2020-08-28] MEDS: HEPARIN 5,000 UNIT/1 ML VIAL SUBCUT SCH ×3 (06:03→23:43)
[2020-08-28 06:05] LABS: Band Neutrophils 1 % (0-10); Eosinophils 7 % (0-10); Lymphocytes 13 % (20-55); Segmented Neutrophils 73 % (50-85); Total Cells Counted 100
[2020-08-28 06:06] LABS: Hypochromasia 1+; Microcytosis 1+; Platelet Estimate Normal
[2020-08-28] MEDS ORDERED: VANCOMYCIN INJ 1,250 MG in SODIUM CHLORIDE 0.9% 250 ML IV PRN (08:28)
[2020-08-28] MEDS: INSULIN GLARGINE 100 UNIT/ML SUBCUT SCH ×2 (08:32→21:33)
[2020-08-28] MEDS: BACITRACIN OINT 0.9 GM PACK TOP SCH (08:33)
[2020-08-28] MEDS: TORSEMIDE 20 MG TABLET PO SCH (08:33)
[2020-08-28] MEDS: ASPIRIN CHEW 81 MG TABLET PO SCH (08:33)
[2020-08-28] MEDS: metOLazone 5 MG TABLET PO SCH (08:33)
[2020-08-28] MEDS: carvediloL 12.5 MG TABLET PO SCH ×2 (08:33→23:43)
[2020-08-28] MEDS: CALCIUM ACETATE 667 MG CAPSULE PER TUBE SCH ×3 (08:33→21:34)
[2020-08-28] MEDS: NON-FORMULARY MEDICATION (Ferric Citrate [Auryxia] 210 mg iron tablet) PO SCH ×3 (08:34→16:37)
[2020-08-28] MEDS: SODIUM HYPOCHLORITE 0.25% IRRIG 473 ML BOTTLE TOP SCH (08:35)
[2020-08-28] MEDS: ZINC OXIDE PASTE 113 GM TUBE TOP SCH (08:35)
[2020-08-28] MEDS: PANTOPRAZOLE 40 MG VIAL IV SCH (16:11)
[2020-08-28] MEDS: FLUCONAZOLE INJ 100 MG in IV BAG 1 EACH IV SCH (16:36)
[2020-08-28] MEDS: DOCUSATE SODIUM 100 MG CAPSULE PO SCH (21:32)
[2020-08-28] MEDS: ESCITALOPRAM 10 MG TABLET PO SCH (21:34)
[2020-08-28] MEDS: ROSUVASTATIN 20 MG TABLET PO SCH (21:34)
[2020-08-29] MEDS: INSULIN REGULAR 100 UNIT/ML SUBCUT SCH ×3 (00:21→12:45)
[2020-08-29] MEDS: SODIUM HYPOCHLORITE 0.25% IRRIG 473 ML BOTTLE TOP SCH ×2 (00:57→11:13)
[2020-08-29] MEDS: ALBUTEROL/IPRATROPIUM 3 ML NEB RESP TX SCH ×3 (01:30→12:57)
[2020-08-29] MEDS: CEFEPIME 1,000 MG in SODIUM CHLORIDE 0.9% 100 ML IV SCH (01:38)
[2020-08-29 05:48] LABS: Immature Granulocytes Absolute 0.48 #; Monocytes % 5.4 % (1.7-12.7); Red Cell Distribution Width 17.1 % (9.3-17.3)
[2020-08-29 06:15] LABS: Basophils # 0.1 10*3/uL (0.0-0.2); Basophils % 0.3 % (0.0-0.8); Eosinophils # 0.1 10*3/uL (0.0-0.87); Eosinophils % 0.3 % (0.00-10.9); Hematocrit 36.6 VOL% (42.0-52.0); Immature Granulocytes % 1.8 %; Lymphocytes # 1.7 10*3/uL (1.4-4.0); Lymphocytes % 6.4 % (21.2-54.2); Mean Corpuscular HGB Conc 29.5 GM/DL (32-36); Mean Platelet Volume 10.3 FL (9.6-12.0); Neutrophils % 85.8 % (38.7-73.9); Platelet Count 273 T/CUMM (130-400); Red Blood Count 3.98 MC/CUMM (3.8-5.5); White Blood Count 26.1 T/CUMM (4-12)
[2020-08-29 06:19] LABS: Hemoglobin 10.8 GM/DL (14.0-18.0)
[2020-08-29 06:22] LABS: Osmolality,Calculated 297.4 MOS/KG (273-304)
[2020-08-29 06:23] LABS: Band Neutrophils 2 % (0-10); Lymphocytes 9 % (20-55); Platelet Estimate Normal; Segmented Neutrophils 87 % (50-85); Total Cells Counted 100
[2020-08-29] MEDS: TORSEMIDE 20 MG TABLET PO SCH (09:28)
[2020-08-29] MEDS: carvediloL 12.5 MG TABLET PO SCH (09:29)
[2020-08-29] MEDS: CALCIUM ACETATE 667 MG CAPSULE PER TUBE SCH ×2 (09:29→16:00)
[2020-08-29] MEDS: ASPIRIN CHEW 81 MG TABLET PO SCH (09:29)
[2020-08-29] MEDS: BACITRACIN OINT 0.9 GM PACK TOP SCH (09:29)
[2020-08-29] MEDS: metOLazone 5 MG TABLET PO SCH (09:29)
[2020-08-29] MEDS: INSULIN GLARGINE 100 UNIT/ML SUBCUT SCH (09:30)
[2020-08-29] MEDS: HEPARIN 5,000 UNIT/1 ML VIAL SUBCUT SCH ×2 (09:30→16:00)
[2020-08-29] MEDS: NON-FORMULARY MEDICATION (Ferric Citrate [Auryxia] 210 mg iron tablet) PO SCH ×3 (11:13→18:02)
[2020-08-29] MEDS: ZINC OXIDE PASTE 113 GM TUBE TOP SCH (11:13)
[2020-08-29] MEDS: FLUCONAZOLE INJ 100 MG in IV BAG 1 EACH IV SCH (14:04)
[2020-08-29] MEDS: PANTOPRAZOLE 40 MG VIAL IV SCH (16:00)
[2020-08-29 16:22] VITALS: BP 115/53
== END 2020-08-29 17:45 | disposition expired | DRG 166 ==
LOC: SUATTDRO 14:29 → N.ICU 14:29 → N.3E 08-28 15:27
PROVIDERS: ADMIT Internal Medicine; ATTEND Hospitalist